=== PATIENT | male | born 1950 | race Caucasian/White ===

== ENCOUNTER 2024-11-13 09:50 | Outpatient (CLI) | payer OTHER, SELFPAY ==
--- OUTSIDE RECORDS SUMMARY | 2024-11-13 11:14 | XMS_ITS | Referral Summary ---
Author Organization [facility] Building Address [address] [place] [id number] Care Team Providers Care [facility]vationist Name Role Phone Jael Fields NP Primary Care Provider [phone] Encounters Date Type Department Care Team Description 09/02/2024 Orders Only [address] [address] Karuna Marion MA Gross hematuria (Primary Dx) 09/02/2024 Orders Only [address] [address] Karuna Marion MA 08/22/2024 6:24 AM MARINE ELECTRONICS TECHNICIAN - 08/22/2024 11:59 PM MARINE ELECTRONICS TECHNICIAN Hospital Encounter [address] [address] Gross hematuria Discharge Disposition: Discharge to home or self care 08/21/[address] [address] Malgorzata Garcia from Last 3 Months Allergies No known active allergies Medications aspirin 81 mg enteric coated tablet Take 1 tablet (81 mg total) by mouth daily Active nitroglycerin (NITROSTAT) 0.[address] 1 tablet (0.4 mg total) under the tongue every 5 (five) minutes as needed for chest pain 90 tablet 2 Active triamcinolone (KENALOG) 0.1 % ointment Apply topically 2 (two) times a day as needed for irritation or rash 30 g 3 Active blood-glucose sensor device 1 each every 14 (fourteen) days To continuous monitor blood glucose. Change every 14 days 2 each 4 Active losartan (COZAAR) 25 mg tablet Take 1 tablet (25 mg total) by mouth daily 90 tablet 1 4 11/26/19 25 Active insulin degludec-liraglut austen (Xultophy 100/3.6) 100 unit-3.6 mg /mL (3 mL) insulin pen pen Inject 20 Units under the skin nightly 15 mL 3 4 Active glipiZIDE XL (GLUCOTROL XL) 5 mg 24 hr tablet Take 1 tablet (5 mg total) by mouth daily 90 tablet 1 4 Active pen needle, diabetic (BD Karolyn 2nd Gen Pen Needle) 32 gauge x /32 needle Use to inject insulin as directed 100 each 1 4 Active empagliflozin (Jardiance) 25 mg tabletIndications :type 2 diabetes mellitus Take 1 tablet (25 mg total) by mouth daily 90 tablet 1 4 Active blood-glucose sensor device Inject 1 each under the skin every 14 (fourteen) days 4 each 2 4 Active metoprolol tartrate (LOPRESSOR) 50 mg immediate release tabletIndications :Essential (primary) hypertension Take 1 tablet (50 mg total) by mouth daily 90 tablet 1 5 Active metFORMIN XR (GLUCOPHAGE XR) 500 mg 24 hr tablet Take 1 tablet (500 mg total) by mouth daily with breakfast 180 tablet 1 5 Active rosuvastatin (CRESTOR) 40 mg tablet TAKE 1 TABLET(40 MG) BY MOUTH DAILY 100 tablet 5 Active Active Problems Problem Noted Date Diagnosed Date S/P drug eluting coronary stent placement 2023 Diabetes mellitus 03/15/2023 Encounter for screening colonoscopy 02/10/2022 Overview (02/10/2022): Added automatically from request for surgery [id number] Pulmonary nodule 11/30/2021 Refractive error 08/16/2021 Age-related nuclear cataract, bilateral 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 08/16/2021 Angina pectoris 06/24/2021 Chronic obstructive bronchitis 06/24/2021 Tobacco dependence syndrome 06/24/2021 Obesity 06/24/2021 Polyp of colon 06/24/2021 Dyslipidemia 06/24/2021 Primary hypertension 06/24/2021 Gastroesophageal reflux disease 06/24/2021 Insomnia 06/24/2021 Palpitations 06/24/2021 Fatigue 06/24/2021 Type 2 diabetes mellitus without complication Abnormal stress test 06/16/2021 Type 2 diabetes mellitus wit h hypoglycemia without coma, with long-term current use of insulin 08/05/2020 Assessment & Plan (07/10/2024 12:41 PM MARINE ELECTRONICS TECHNICIAN): A1c in office today 7.7%, previous 6.7% Hypoglycemic episodes improved since decreasing the Glipizide. Will increase the Jardiance to 25 mg daily. Assessment & Plan (04/09/2024 12:32 PM CDT): A1c has improved to 6.7 from previous 7.3. Getting episodes of hypoglycemia (uses CGM). Will decrease Glipizide to 5 mg daily and Xultophy to 20 units, pt to keep track of sugars as we may need to return the insulin to 25 units. Awaiting remainder of labs, for some reason not drawn with the A1c last month. Assessment & Plan (01/08/2024 12:49 PM CDT): Awaiting A1c, lab drawn today. Has been tolerating Metformin 1000 mg daily. FreeStyle Libre3 has been showing his fasting sugars are running low. Will decrease Xultophy to 28 units daily, home BG in 1 week. May adjust more depending on A1c result. Has been continuing old Whiteyboard, insurance no longer covered. Will try to switch to Jardiance. Samples today to get him started. Assessment & Plan (10/09/2023 2:04 PM MARINE ELECTRONICS TECHNICIAN): A1c worsened from 7.8 to 8.6% Dietary adherence has been a challenge for patient. Adding in Metformin, was on in the past and tolerated well but switched for different medication. CGM discussed and sample of Free Style Sree 3 started today in office. I want weekly fasting BG readings and will adjust his Xultophy as indicated. Recheck A1c in 3 months, if worsened or no improvement will have patient establish with Endo. Assessment & Plan (06/19/2023 1:33 PM CDT): A1c shows nice improvement at 7.8 from previous 8.4. Will continue current regimen and encouraged diet adherence. Cigarette nicotine dependenc e with nicotine-induced disorder 05/25/2020 Other fatigue 05/25/2020 Class 1 obesity with serious comorbidity and body mass index (BMI) of 31.0 to 31.9 in adult 05/25/2020 Essential hypertension 04/02/2019 Coronary artery disease 10/18/2016 Assessment & Plan (04/09/2024 12:33 PM CDT): Stable at this time, continue follow up with Cardiology. Continuing Crestor, awaiting updated numbers. Assessment & Plan (06/19/2023 1:35 PM CDT): Stable at this time, overdue for Cardiology follow up. Referral placed for our building. Dyslipidemia 10/18/2016 Chronic bronchitis with COPD (chronic obstructive pulmonary disease) 10/17/2016 Colon polyps 10/17/2016 Insomnia 10/17/2016 Hypertension associated with type 2 diabetes norma litus 10/17/2016 Assessment & Plan (07/10/2024 12:40 PM MARINE ELECTRONICS TECHNICIAN): BP stable in office today. Continuing current regimen. Assessment & Plan (04/09/2024 12:33 PM CDT): BP stable in office today. Assessment & Plan (01/08/2024 12:50 PM CDT): BP stable in office today. Patient continuing Rosuvastatin 20 mg daily, discussed likely will need to increase to the 40 mg once we get next set of results back as his LDL is not at goal. Assessment & Plan (06/19/2023 1:34 PM CDT): BP stable in office, renal function in good shape. No changes today. GERD (gastroesophageal reflux disease) Overview (06/23/2021): Occasionally R/T diet Resolved Problems Problem Noted Date Diagnosed Date Resolved Date Coronary atherosclerosis 03/15/2023 Abnormal cardiovascular stress test 06/24/2021 10/03/2023 Arteriosclerosis of coronary artery 06/24/2021 10/03/2023 Palpitations 05/25/2020 12/06/2022 Angina pectoris 05/06/2020 12/06/2022 Overview (05/06/2020): chronic,stable,continue current tx plan,routine f/u appt Immunizations Immunization Administration Dates Next Due Influenza, Quadrivalent, Hig h Dose, Preservative Free, Intrr 08/05/2020 Influenza, Unspecified 10/09/2023(Deferr ed: Patient Refused),10/09/2023(Deferred: Patient Refused),09/03/2023(Deferred: Patient Refused),09/03/2023(Deferred: Patient Refused),06/03/2023(Deferred: Patient Refused),09/03/2022(Deferred: Patient Refused),09/03/2022(Deferred: Patient Refused),09/03/2022(Deferred: Patient Refused),06/07/2022(Deferred: Patient Refused),11/30/2021(Deferred: Patient Refused),06/23/2021(Deferred: Patient Refused) Pfizer SARS-CoV-2 Monovalent Vaccination (12+ Yrs) PURPLE 08/02/2021,01/04/2021,12/07/2020 Tdap 10/27/2022 Social History Tobacco Use Types Packs/Day Years Used Date Smoking Tobacco: Every Day Cigarettes 1.3 50 Passive Smoke Exposure: Current Smokeless Tobacco: Never Alcohol Use Standard Drinks/Week Comments Yes 0 (1 standard drink = 0.6 oz pur e alcohol) AUDIT-C Answer Date Recorded Q1: How often do you have a drink containing alc ohol? 2-3 times a week 12/06/2022 Q2: How many drinks containi ng alcohol do you have on a typical day when you are drinking? 1 or 2 12/06/2022 Frequency of Binge Drinking Not on file 01/2023 PHQ-2 Answer Date Recorded PHQ-2 Total Score (If total score is 3 or more points, staff should administer the PHQ-9) 0 07/10/2024 Sex and Gender Information Value Date Recorded Sex Assigned at Not on file Legal Sex Male 6:33 PM MARINE ELECTRONICS TECHNICIAN Gender Identity Not on file Sexual Orientation Not on file Last Filed Vital Signs Vital Sign Reading Time Taken Comments Blood Pressure 120/64 07/10/2024 11:29 AM MARINE ELECTRONICS TECHNICIAN Pulse 73 07/10/2024 11:29 AM MARINE ELECTRONICS TECHNICIAN Temperature 36.4 C (97.5 F) 07/10/2024 11:29 AM MARINE ELECTRONICS TECHNICIAN Respiratory Rate 16 04/02/2024 11:12 AM CDT Oxygen Saturation 99% 07/10/2024 11:29 AM MARINE ELECTRONICS TECHNICIAN Inhaled Oxygen Concentration - - Weight 94.3 kg (208 lb) 07/10/2024 11:29 AM MARINE ELECTRONICS TECHNICIAN Height 180.3 cm (5' 11 ) 07/10/2024 11:29 AM MARINE ELECTRONICS TECHNICIAN Body Mass Index 29.01 07/10/2024 11:29 AM MARINE ELECTRONICS TECHNICIAN Plan of Treatment Not on file Medical Devices Implanted Type Area Group Insurance Special Agent Device Identifier Shelf Expiration Date Model / Serial / Lot Stent-09/03/1999 Implanted:09/03 (Quantity not on file) Stent Coronary Procedures Procedure Name Priority Date/Time Associated Diagnosis Comments CT ABDOMEN PELVIS W WO CONTRAST Schedule Routine, Read Routine (OP Routine) 08/22/2024 10:52 AM MARINE ELECTRONICS TECHNICIAN Gross hematuria POCT HEMOGLOBIN A1C Routine 07/10/2024 11:46 AM MARINE ELECTRONICS TECHNICIAN Type 2 diabetes mellitus with hypoglycemia without coma, with long-term current use of insulin (HCC) EGFR Routine 04/09/2024 12:08 PM CDT Type 2 diabetes mellitus with hyperglycemia, with long-term current use of insulin (HCC) LIPID PANEL Routine 04/09/2024 12:08 PM CDT Type 2 diabetes mellitus with hyperglycemia, with long-term current use of insulin (HCC) ALBUMIN CREATININE RATIO, URINE Routine 10/09/2023 1:41 PM MARINE ELECTRONICS TECHNICIAN Type 2 diabetes mellitus without complication, with long-term current use of insulin (HCC) PSA SCREEN Routine 09/28/2023 12:15 PM MARINE ELECTRONICS TECHNICIAN Benign prostatic hyperplasia with urinary frequency CT LUNG CANCER SCREENING Schedule Routine, Read Routine (OP Routine) 2023 3:24 PM MARINE ELECTRONICS TECHNICIAN Personal history of nicotine dependence DIABETIC EYE EXAM Routine 11/20/2022 COLONOSCOPY 05/05/2022 9:39 AM CDT HEPATITIS C ANTIBODY Routine 06/10/2020 8:49 AM CDT from Last 3 Months or Most Recently Relevant to Health Maintenance Results * CT Abdomen Pelvis W WO Contrast (08/22/2024 10:52 AM MARINE ELECTRONICS TECHNICIAN) Anatomical Region Laterality Modality Body N/A Computed Tomogra phy 08/31/2024 8:37 AM MARINE ELECTRONICS TECHNICIAN Narrative 08/31/2024 8:43 AM MARINE ELECTRONICS TECHNICIAN EXAM DESCRIPTION: CT ABDOMEN PELVIS W WO CONTRAST REASON FOR STUDY: Gross hematuria Hematuria for about 6 - 8 months Heart stent Bladder scoped about a year ago TECHNIQUE: CT scan of the abdomen and pelvis performed without and with intravenous and without oral contrast using helical scanning technique with dynamic intravenous contrast. Reconstructed coronal and sagittal MPR images reviewed. All images stored on PACS. Automated exposure control was used as a dose optimization technique for this examination. CONTRAST TYPE/DOSE: 75mL of IOVERSOL 350 MG IODINE/ML INTRAVENOUS SYRINGE injected via intravenous COMPARISON: 07/14/2021. FINDINGS: LOWER CHEST: The lung bases are clear. There is no pleural effusion. LIVER: The liver size and contour normal. The portal and hepatic veins are patent. GALLBLADDER: No gallstones or overt inflammatory change. BILE DUCTS: No biliary ductal dilation. SPLEEN: Spleen size normal. Granulomatous calcifications are seen. PANCREAS: No pancreatic mass or inflammatory change. ADRENALS: Normal KIDNEYS/URINARY TRACT: No right renal calculus. No left renal calculus. No ureteral calculus. There is no hydronephrosis or hydroureter. There is indistinctness of the urinary bladder wall. No solid renal mass. There is normal excretion of contrast from the kidneys bilaterally. The ureters are not adequately opacified for assessment. There is contrast seen in the calices in the renal pelves, but the ureters are predominantly non opacified for assessment. There is opacification of the distal half of the right ureter with no obvious abnormality where opacified. The left ureter is not opacified. The prostate impresses upon the urinary bladder base. GI: No evidence of bowel obstruction. Moderate descending and sigmoid colon diverticulosis. No evidence of acute diverticulitis. The terminal ileum and appendix are normal. The stomach and duodenal are normal. No pneumatosis. No abnormal bowel wall thickening. PERITONEUM: No ascites or free air. No mesenteric mass or lymphadenopathy. RETROPERITONEUM: No retroperitoneal mass or lymphadenopathy. REPRODUCTIVE: The prostate is enlarged and impresses upon the urinary bladder base. The prostate is heterogeneous, correlation with PSA level recommended. VASCULATURE: Abdominal aorta nonaneurysmal. Venous structures unremarkable. MUSCULOSKELETAL: Bone windows demonstrate no acute or aggressive osseous abnormality. There is the small sclerotic focus T12 and L4, these are nonspecific but may be bone islands, appear unchanged. OTHER: No other abnormality. IMPRESSION: Distal half of the right ureter is normally opacified with no abnormality, the ureters are otherwise are non opacified. No obvious mass. Indistinctness of the urinary bladder wall, this is nonspecific but may be due to cystitis or related to chronic outlet obstruction from the enlarged prostate. Correlation with urinalysis recommended. Otherwise normal CT urogram. No evidence of urolithiasis or obstructive uropathy. No renal or renal pelvis mass. No evidence of an acute abnormality of the abdomen and pelvis. Enlarged heterogeneous prostate impressing upon the urinary bladder base. Correlation with PSA level recommended. Colonic diverticulosis with no evidence of acute diverticulitis. THIS IS AN ELECTRONICALLY VERIFIED FINAL REPORT 08/31/2024 8:43 AM - Electronically signed by Sanjiv Beach M.D. CH: LALITHA Report ID: [id number] Reading Location: [id number] Procedure Note Sanjiv Beach Jr., MD - 08/31/2024 EXAM DESCRIPTION: CT ABDOMEN PELVIS W WO CONTRAST REASON FOR STUDY: Gross hematuria Hematuria for about 6 - 8 months Heart stent Bladder scoped about a yearago TECHNIQUE: CT scan of the abdomen and pelvis performed without and with intravenous and without oral contrast using helical scanning techniquewith dynamic intravenous contrast. Reconstructed coronal and sagittal MPRimages reviewed. All images stored on PACS. Automated exposure control was usedas a dose optimization technique for this examination. CONTRAST TYPE/DOSE: 75mL of IOVERSOL 350 MG IODINE/ML INTRAVENOUSSYRINGE injected via intravenous COMPARISON: 07/14/2021. FINDINGS: LOWER CHEST: The lung bases are clear. There is no pleural effusion. LIVER: The liver size and contour normal. The portal and hepatic veinsare patent. GALLBLADDER: No gallstones or overt inflammatory change. BILE DUCTS: No biliary ductal dilation. SPLEEN: Spleen size normal. Granulomatous calcifications are seen. PANCREAS: No pancreatic mass or inflammatory change. ADRENALS: Normal KIDNEYS/URINARY TRACT: No right renal calculus. No left renal calculus.No ureteral calculus. There is no hydronephrosis or hydroureter. There is indistinctness of the urinary bladder wall. No solid renal mass. There is normal excretion of contrast from the kidneys bilaterally. The uretersare not adequately opacified for assessment. There is contrast seen in the calices in the renal pelves, but the ureters are predominantly nonopacified for assessment. There is opacification of the distal half of the rightureter with no obvious abnormality where opacified. The left ureter is notopacified. The prostate impresses upon the urinary bladder base. GI: No evidence of bowel obstruction. Moderate descending and sigmoidcolon diverticulosis. No evidence of acute diverticulitis. The terminal ileumand appendix are normal. The stomach and duodenal are normal. Nopneumatosis. No abnormal bowel wall thickening. PERITONEUM: No ascites or free air. No mesenteric mass orlymphadenopathy. RETROPERITONEUM: No retroperitoneal mass or lymphadenopathy. REPRODUCTIVE: The prostate is enlarged and impresses upon the urinary bladder base. The prostate is heterogeneous, correlation with PSA level recommended. VASCULATURE: Abdominal aorta nonaneurysmal. Venous structuresunremarkable. MUSCULOSKELETAL: Bone windows demonstrate no acute or aggressive osseous abnormality. There is the small sclerotic focus T12 and L4, these are nonspecific but may be bone islands, appear unchanged. OTHER: No other abnormality. IMPRESSION: Distal half of the right ureter is normally opacified with noabnormality, the ureters are otherwise are non opacified. No obvious mass. Indistinctness of the urinary bladder wall, this is nonspecific but maybe due to cystitis or related to chronic outlet obstruction from the enlarged prostate. Correlation with urinalysis recommended. Otherwise normal CT urogram. No evidence of urolithiasis or obstructive uropathy. No renal or renal pelvis mass. No evidence of an acute abnormality of the abdomen and pelvis. Enlarged heterogeneous prostate impressing upon the urinary bladder base. Correlation with PSA level recommended. Colonic diverticulosis with no evidence of acute diverticulitis. THIS IS AN ELECTRONICALLY VERIFIED FINAL REPORT 08/31/2024 8:43 AM - Electronically signed by Sanjiv Beach M.D. CH: LALITHA Report ID: [id number] Reading Location: [id number] us Daja Carroll NP IMG CT PROCEDURES Final Result * POCT hemoglobin A1c (07/10/2024 11:46 AM MARINE ELECTRONICS TECHNICIAN) Hemoglobin A1C, POC 7.7 4.0 - 5.6 % Blood 07/10/2024 11:4 6 AM MARINE ELECTRONICS TECHNICIAN us Daja Carroll NP POINT OF CARE TEST ORDERABLES Fi nal Result * eGFR (04/09/2024 12:08 PM CDT) eGFR >90 >=60 mL/min/1. 73 m2 Comment: Interpretive Data Reference Interval Normal >/= 90 mL/min/1.73m2 Mildly decreased* 60 - 89 mL/min/1.73m2 Mildly to moderately decreased 45 - 59 mL/min/1.73m2 Moderately to severely decreased 30 - 44 mL/min/1.73m2 Severely decreased 15 - 29 mL/min/1.73m2 Kidney Failure < 15 mL/min/1.73m2 *Relative to young adult level Estimated glomerular filtration rate is determined by the 2020 CKD-EPI equation recommended by the National Kidney Foundation (A Unifying Approach to GFR Estimation: Recommendations of the NKF-ASK Task Force on Reassessing the Inclusion of Race in Diagnosing Kidney Disease, JASN 2020). The CKD-EPI equation should not be used for patients with unstable renal function and has not been validated in children and those over 70. Current interpretive data was last reviewed 2021. Blood 04/09/2024 12:0 8 PM CDT 04/09/2024 7:35 PM CDT us Daja Carroll NP LAB BLOOD ORDERABLES Final Resul t [facility] [id number] [address] Department [place] [address] * Lipid panel (04/09/2024 12:08 PM CDT) Cholesterol 196 30 - 199 mg/dL Comment: Interpretive Data Ages < or = 19 years Acceptable: <170 mg/dL Borderline high: 170-199 mg/dL High: >or= 200 mg/dL Ages > or = 20 years Desirable: <200 mg/dL Borderline high: 200-239 mg/dL High: >or= 240 mg/dL Literature References: 1. Expert Panel on Integrated Guidelines for Cardiovascular Health and Risk Reduction in Children and Adolescents. Pediatrics 2011;128:S213 2. NCEP Expert Panel. Circulation 2004;110:227 Current Interpretive Data was last revised on 2018. Triglycerides 69 <=149 mg/dL [facility] Comment: Interpretive Data Ages < or = 9 years Acceptable: <75 mg/dL Borderline high: 75-99 mg/dL High: >or= 100 mg/dL Ages 10 to 20 years Acceptable: <90 mg/dL Borderline high: 90-129 mg/dL High: >or= 130 mg/dL Ages > or = 20 years Desirable: <150 mg/dL Borderline high: 150-199 mg/dL High: 200-499 mg/dL Very high: >or= 499 mg/dL Literature References: 1. Expert Panel on Integrated Guidelines for Cardiovascular Health and Risk Reduction in Children and Adolescents. Pediatrics 2011;128:S213 2. NCEP Expert Panel. Circulation 2004;110:227 Current Interpretive Data was last revised on 2018. HDL 70 >=40 mg/dL [facility] Comment: Interpretive Data Ages < or = 19 years Acceptable: >45 mg/dL Borderline low: 40-45 mg/dL Low: <40 mg/dL Ages > or = 20 years Desirable: >or= 60 mg/dL Low: <40 mg/dL Literature References: 1. Expert Panel on Integrated Guidelines for Cardiovascular Health and Risk Reduction in Children and Adolescents. Pediatrics 2011;128:S213 2. NCEP Expert Panel. Circulation 2004;110:227 Current Interpretive Data was last revised on 2018. LDL, calculated 112 <=129 mg/dL [facility] Comment: Interpretive Data Ages < or = 19 years Acceptable: <110 mg/dL Borderline high: 110-129 mg/dL High: >or= 130 mg/dL Ages > or = 20 years Optimal: <100 mg/dL Near optimal: 100-129 mg/dL Borderline high: 130-159 mg/dL High: >160 mg/dL Literature References: 1. Expert Panel on Integrated Guidelines for Cardiovascular Health and Risk Reduction in Children and Adolescents. Pediatrics 2011;128:S213 2. NCEP Expert Panel. Circulation 2004;110:227 Current Interpretive Data was last revised on 2018. Non-HDL Cholesterol 126 mg/dL [facility] Comment: Interpretive Data Ages < or = 19 years Acceptable: <120 mg/dL Borderline high: 120-144 mg/dL High: >145 mg/dL Ages > or = 20 years When triglycerides are >200 mg/dL, Non-HDL cholesterol is a secondary target of therapy with treatment goals that are 30 mg/dL greater than the LDL cholesterol target. Literature References: 1. Expert Panel on Integrated Guidelines for Cardiovascular Health and Risk Reduction in Children and Adolescents. Pediatrics 2011;128:S213 2. NCEP Expert Panel. Circulation 2004;110:227 Current Interpretive Data was last revised on 2018. Chol/HDL ratio 3 [facility] Blood 04/09/2024 12:0 8 PM CDT 04/09/2024 7:33 PM CDT us Daja Carroll NP LAB BLOOD ORDERABLES Final Resul t [facility] [id number] [address] Department [place] [address] * Albumin Creatinine Ratio, Urine (10/09/2023 1:41 PM MARINE ELECTRONICS TECHNICIAN) Albumin Ur <12.0 mg/L [facility] Comment: Interpretive Data No reference range established. Current interpretive data was last revised 2019. Creatinine Ur 41.3 mg/dL [facility] Comment: Interpretive Data No reference range established. Current interpretive data was last revised 2019. Albumin Creatinine Ratio, Ur <29 1 - 29 mg/g [facility] Urine 10/09/2023 1:41 PM MARINE ELECTRONICS TECHNICIAN 10/09/2023 8:30 PM MARINE ELECTRONICS TECHNICIAN Daja Carroll NP LAB URINE ORDERABLES Final Resul t Performing Organization Address [facility] de Phone Number [facility] [address] [address] Department [place] [address] * PSA screen (09/28/2023 12:15 PM MARINE ELECTRONICS TECHNICIAN) PSA-Total 1.02 <=6.20 ng/mL [facility] Comment: Interpretive Data AGE SEX REFERENCE INTERVAL 0 minutes-150 years Female None 0 minutes-49 years Male None 50-59 years Male 0-3.90 60-69 years Male 0-5.40 70-79 years Male 0-6.20 80-150 years Male 0-6.20 The Radha PSA Total assay procedure was used. Results from different manufacturers or methods may not be comparable. Serial testing should be performed using the same method. Current interpretive data last revised 22. Blood 09/28/2023 12:1 5 PM MARINE ELECTRONICS TECHNICIAN 09/28/2023 8:09 PM MARINE ELECTRONICS TECHNICIAN us Daja Carroll NP LAB BLOOD ORDERABLES Final Resul t Performing Organization Address [facility] de Phone Number [facility] [id number] [address] [place] [address] * CT Lung Cancer Screening (2023 3:24 PM MARINE ELECTRONICS TECHNICIAN) Anatomical Region Laterality Modality Chest N/A Computed Tomogra phy 07/31/2023 7:30 AM MARINE ELECTRONICS TECHNICIAN Narrative 07/31/2023 7:38 AM MARINE ELECTRONICS TECHNICIAN EXAM DESCRIPTION: CT LUNG CANCER SCREENING REASON FOR STUDY: Screening CT of the chest in a current smoker with a 52 pack year smoking history. Additional history: None. TECHNIQUE: Low dose CT scan of the chest was performed without intravenous contrast using helical scanning technique. The exam extends from the lung apices through the lung bases. Automatic exposure control was used as a dose optimization technique. NOTE: This study was performed for the specific purposes of lung cancer screening and is not an alternative to diagnostic chest CT. RADIATION DOSE: CT dose index volume (CTDIvol) = 2.39 mGy COMPARISON: 12/30/2021 FINDINGS: SMOKING RELATED LUNG DISEASE: There are mild emphysematous changes of lungs with scattered mild subsegmental atelectasis and scarring. There is no definite evidence of a pneumothorax. The central airways are grossly patent. There is scattered mild bronchial wall thickening, which is likely related to mild chronic bronchitis/bronchiolitis. There is no definite evidence of focal consolidation or pleural effusion. There are scattered calcified granulomas noted. LUNG NODULES: There are scattered pulmonary nodules noted, similar to the prior study. For example, there is a stable subpleural 0.3 cm right lower lobe pulmonary nodule (axial image 197). There is a stable 0.3 cm right lower lobe pulmonary nodule adjacent to a bronchiole (axial image 193). There is a stable 0.3 cm left upper lobe pulmonary nodule abutting the left major fissure (axial image 69). There is a stable elongated left lower lobe pulmonary nodule measuring 0.7 cm abutting the left hemidiaphragm (axial image 208). CORONARY ARTERY CALCIFICATION: Present. OTHER: The heart size is stable. There is no definite evidence of a pericardial effusion. There is redemonstration of subendocardial fatty infiltration involving the left ventricle, which is likely sequela of prior ischemia. There are atherosclerotic changes of the thoracic aorta and coronary vessels. There is no definite unenhanced CT evidence of mediastinal, hilar, or axillary lymphadenopathy. There are scattered subcentimeter mediastinal lymph nodes noted with the largest measuring 0.6 cm in the precarinal region (axial image 126). Calcified right hilar lymph nodes are noted. There is a small hiatal hernia. The bilateral adrenal glands are grossly stable and unremarkable. There are scattered colonic diverticula noted. There is mild osteopenia with degenerative changes of the spine. IMPRESSION: Redemonstration of scattered small pulmonary nodules measuring up to 0.7 cm, grossly similar to the prior study. No definite evidence of a new suspicious pulmonary nodule. Mild emphysematous changes of lungs with scattered mild subsegmental atelectasis and scarring. Scattered mild bronchial wall thickening, which is likely related to mild chronic bronchitis/bronchiolitis. Evidence of prior granulomatous disease. Lung-RADS category 2: Benign appearance or behavior. Recommendation: Low dose Screening CT of chest in 12 months. THIS IS AN ELECTRONICALLY VERIFIED FINAL REPORT 07/31/2023 7:38 AM - Electronically signed by Lokesh Hassan D.O. PS T: Report ID: [id number] Reading Location: [id number] Procedure Note Lokesh Hassan, DO - 07/31/2023 EXAM DESCRIPTION: CT LUNG CANCER SCREENING REASON FOR STUDY: Screening CT of the chest in a current smoker with a52 pack year smoking history. Additional history: None. TECHNIQUE: Low dose CT scan of the chest was performed without intravenous contrast using helical scanning technique. The exam extends from the lung apices through the lung bases. Automatic exposure control was used as adose optimization technique. NOTE: This study was performed for the specific purposes of lung cancer screening and is not an alternative to diagnostic chest CT. RADIATION DOSE: CT dose index volume (CTDIvol) = 2.39 mGy COMPARISON: 12/30/2021 FINDINGS: SMOKING RELATED LUNG DISEASE: There are mild emphysematouschanges of lungs with scattered mild subsegmental atelectasis and scarring. Thereis no definite evidence of a pneumothorax. The central airways are grossly patent. There is scattered mild bronchial wall thickening, which islikely related to mild chronic bronchitis/bronchiolitis. There is no definite evidence of focal consolidation or pleural effusion. There are scattered calcified granulomas noted. LUNG NODULES: There are scattered pulmonary nodules noted, similar tothe prior study. For example, there is a stable subpleural 0.3 cm right lower lobe pulmonary nodule (axial image 197). There is a stable 0.3 cm rightlower lobe pulmonary nodule adjacent to a bronchiole (axial image 193). Thereis a stable 0.3 cm left upper lobe pulmonary nodule abutting the left majorfissure (axial image 69). There is a stable elongated left lower lobe pulmonary nodule measuring 0.7 cm abutting the left hemidiaphragm (axial image 208). CORONARY ARTERY CALCIFICATION: Present. OTHER: The heart size is stable. There is no definite evidence of a pericardial effusion. There is redemonstration of subendocardial fatty infiltration involving the left ventricle, which is likely sequela ofprior ischemia. There are atherosclerotic changes of the thoracic aorta and coronary vessels. There is no definite unenhanced CT evidence of mediastinal, hilar, oraxillary lymphadenopathy. There are scattered subcentimeter mediastinal lymphnodes noted with the largest measuring 0.6 cm in the precarinal region (axialimage 126). Calcified right hilar lymph nodes are noted. There is a small hiatal hernia. The bilateral adrenal glands are grossly stable and unremarkable. There are scattered colonic diverticula noted. There is mild osteopenia with degenerative changes of the spine. IMPRESSION: Redemonstration of scattered small pulmonary nodules measuring up to 0.7cm, grossly similar to the prior study. No definite evidence of a newsuspicious pulmonary nodule. Mild emphysematous changes of lungs with scattered mild subsegmental atelectasis and scarring. Scattered mild bronchial wall thickening, which is likely related to mild chronic bronchitis/bronchiolitis. Evidence of prior granulomatous disease. Lung-RADS category 2: Benign appearance or behavior. Recommendation: Low dose Screening CT of chest in 12 months. THIS IS AN ELECTRONICALLY VERIFIED FINAL REPORT 07/31/2023 7:38 AM - Electronically signed by Lokesh Hassan D.O. PS T: Report ID: [id number] Reading Location: [place] [address] [address] MACHINE GR[employer]ER IMG CT PROCEDURES Final Result * Diabetic Eye Exam (11/20/2022) Historical Provider HEALTH MAINTENANCE Final Result * COLONOSCOPY (05/05/2022 9:39 AM CDT) Anatomical Region Laterality Modality Other Narrative Procedure Note Ruel Rodgers MD - 05/05/2022 9:39 AM CDT [facility] Patient Name: Richard Argueta Procedure Date: 05/05/2022 9:39 AM Date of : 1950 Admit Type: Outpatient Age: 71 Gender: Male Attending MD: Ruel Rodgers M.D. Room: [facility] ENDOSCOPY ROOM 2 Note Status: Finalized Patient Profile: Refer to note in patient chart for documentation of history and physical. Procedure: Colonoscopy Indications: High risk colon cancer surveillance: Personalhistory of colonic polyps, Last colonoscopy: 2016 Referring MD: Ruel Root M.D. Providers: Ruel Rodgers M.D. Impression: - Hemorrhoids found on perianal exam. - Two 5 to 6 mm polyps in the sigmoid colon,removed with a hot biopsy forceps. Resected andretrieved. - Diverticulosis in the sigmoid colon and in the descending colon. - The examination was otherwise normal. Recommendation: - Discharge patient to home. - Resume previous diet. - Continue present medications. - Await pathology results. - Repeat colonoscopy in 5 years for surveillance. - Return to primary care physician as previously scheduled. Medicines: Propofol per Anesthesia Complications: No immediate complications. Estimated Blood Loss: Estimated blood loss: none. Procedure: Pre-Anesthesia Assessment: - This assessment was completed [Time ofAssessment] prior to the administration of sedation. The benefits, risks and alternatives of theprocedure and sedation were discussed and informed consentwas obtained. All questions were answered. Please referto the signed informed consent document in the medical record. The scope was passed under direct vision.The Colonoscope [id number] was introducedthrough the anus and advanced to the the cecum, identifiedby appendiceal orifice and ileocecal valve. The bowel preparation used was Miralax and bisacodyl tabletsvia single dose instruction. The colonoscopy wasperformed without difficulty. The patient tolerated the procedure well. The quality of the bowelpreparation was good. The ileocecal valve, appendiceal orifice, and rectum were photographed. Findings: Hemorrhoids were found on perianal exam. Two sessile polyps were found in the sigmoid colon. The polyps were 5to 6 mm in size. These polyps were removed with a hot biopsy forceps. Resection and retrieval were complete. Verification of patient identification for the specimen was done by the physician and nurse using the patient's name and date. Estimated blood loss was minimal. Multiple small and large-mouthed diverticula were found in thesigmoid colon and descending colon. The exam was otherwise without abnormality. Electronically signed by Ruel Rodgers M.D. Ruel Rodgers M.D. 05/05/2022 10:20:37 AM Number of Addenda: 0 Note Initiated On: 05/05/2022 9:39 AM Procedure Code(s): --- Professional --- 04134, Colonoscopy, flexible; with removal of tumor(s), polyp(s), or other lesion(s) by hot biopsy forceps Diagnosis Code(s): --- Professional --- K57.30, Diverticulosis of large intestine without perforation orabscess without bleeding D12.5, Benign neoplasm of sigmoid colon K64.9, Unspecified hemorrhoids Z86.010, Personal history of colonic polyps CPT copyright 2020 [employer]. All rights reserved. The codes documented in this report are preliminary and upon remote coders reviewmay be revised to meet current compliance requirements. Recognized by the [employer] for promoting quality in endoscopy us Ruel Rodgers MD ENDOSCOPY PROCEDURES Final Re sult * Hepatitis C antibody (06/10/2020 8:49 AM CDT) Hep C Ab NON-REACTI VE NON-REACT SHAQ [facility] SIGNAL TO CUT-OFF 0.01 <1.00 [facility] Comment: HCV antibody was non-reactive. There is no laboratory evidence of HCV infection. In most cases, no further action is required. However, if recent HCV exposure is suspected, a test for HCV RNA (test code 68343) is suggested. For additional information please refer to http://education.5app/faq/ZHP85a8 (This link is being provided for informational/ educational purposes only.) 06/10/2020 8:49 AM CDT 06/10/2020 8:59 AM CDT Narrative [facility] - 06/11/2020 10:43 AM CDT FASTING:YES PATIENT REFUSED SOME TESTING; PATIENT ENCOURAGED TO RETURN. FASTING: YES Niranjan Potter DO LAB MICROBIOLOGY - GENER AL ORDERABLES Final Result [facility] [address] [place] [address] from Last 3 Months or Most Recently Relevant to Health Maintenance Insurance [facility] MEDICARE ADV [employer] MEDICARE ADV Advance Directives For more information, please contact: [phone] * Full Code (Latest Code Status on File) Date Activated Date Inactivated Comments 05/05/2022 9:32 AM 05/05/2022 3:25 PM * Full Code Date Activated Date Inactivated Comments 05/05/2022 9:32 AM 05/05/2022 9:32 AM Care Teams Salvationist Relationship Specialty Start Date End Date Jael Fields NP [facility] [facility] [address] [place] [address] [place] [id number] PCP - General Internal Medicine 10/28/24
--- OUTSIDE RECORDS SUMMARY | 2024-11-13 11:14 | XMS_ITS | Patient Health Summary ---
Author Organization [facility] Address [address] [place] [address] Care Team Providers Care Chief Deputy Name Role Phone Unavailable Primary Care Provider Unavailabl e Note from [facility],non-owned Affiliates and Associated Physician Practices is amultiple site organization consisting of ambulatory clinics and hospital sitesin [place], [place], [place] and [place]. This disclosure is being madepursuant to the Care Everywhere program and may not contain all information available regarding this patient. Last updated 18.[facility] Social History Tobacco Use Types Packs/Day Years Used Date Smoking Tobacco: Never Assessed Sex and Gender Information Value Date Recorded Sex Assigned at Not on file Gender Identity Not on file Sexual Orientation Not on file Procedures * DERMATOPATHOLOGY(Performed 11/30/2022) Results * DERMATOPATHOLOGY (11/30/2022 3:33 AM CDT) Case Report Dermatopathology Report Case: [id number] Authorizing Provider: Matt Cazares MD Collected: 11/30/2022 03:33 AM Ordering Location: [facility] DermPath Lab Received: 12/04/2022 06:51 AM Pathologist: Lindsey Xiong MD Specimen: Skin, left upper chest 3 4:58 PM CDT DERMATOPATHOLOGY LABORATORY Final Diagnosis Specimen A. SKIN, left upper chest: BENIGN VERRUCOUS KERATOSIS (L82.1) 3 4:58 PM CDT DERMATOPATHOLOGY LABORATORY Clinical History SK R/O Atypia Path# [id number] 3 4:58 PM CDT DERMATOPATHOLOGY LABORATORY Gross Description Specimen A: Received is one formalin filled container labeled with the patient's name and designated left upper chest. The specimen consists of a shave biopsy measuring [id number] mm. Jar 0+. 3 4:58 PM CDT DERMATOPATHOLOGY LABORATORY Microscopic Description Specimen A. SKIN, left upper chest: Sections show hyperkeratosis, papillomatosis, hypergranulosis, and acanthosis. These histological findings can be seen in a verruca vulgaris or a seborrheic keratosis. 3 4:58 PM CDT DERMATOPATHOLOGY LABORATORY Disclaimer An external and internal positive and negative controls are appropriate for the histochemical, immunohistochemical and immunofluorescence stain(s) in this case (if any), except where stated explicitly. The performance characteristics of the stain(s) cited in this report were developed and its performance characteristic determined by the Dermatopathology Laboratory at [facility], directed by Dr. Belén Villanueva. These tests need not be, and therefore are not, approved by the [place] Food and Drug Administration. The tests are used for clinical purposes. Billing Codes Specimen Charges Stain Charges 55707 1 3 4:58 PM CDT DERMATOPATHOLOGY LABORATORY Embedded Images 3 4:58 PM CDT DERMATOPATHOLOGY LABORATORY Pathology/Cytolo gy TISSUE SPECIMEN FROM SKIN / Unknown 11/30/2022 3:33 AM CDT 12/04/2022 6:51 AM CDT Matt Cazares MD LAB - PATHOLOGY/CYTO LOGY ORDERABLES DERMATOPATHOLOGY LABORATORY [facility] - Department of Dermatology [address], [address] [phone]
--- OUTSIDE RECORDS SUMMARY | 2024-11-13 11:14 | XMS_ITS | Encounter Summary ---
Author Organization [facility] Address [address] [place] [address] Care Team Providers Care Spanish Speaking Babysitter Name Role Phone Unavailable Primary Care Provider Unavailabl e Encounter Details Date Type Department Care Team (Late st Contact Info) Description 12/04/2022 Lab Requisition [facility] DermPath Lab [address] [place] [phone] Matt Cazares MD [address] [place] [address] [place] [address] Social History Tobacco Use Types Packs/Day Years Used Date Smoking Tobacco: Never Assessed Sex and Gender Information Value Date Recorded Sex Assigned at Not on file Gender Identity Not on file Sexual Orientation Not on file documented as of this encounter Plan of Treatment Not on file documented as of this encounter Procedures Procedure Name Priority Date/Time Associated Diagnosis Comments DERMATOPATHOLOGY Routine 11/30/2022 3:33 AM CDT documented in this encounter Results * DERMATOPATHOLOGY (11/30/2022 3:33 AM CDT) Case Report Dermatopathology Report Case: [id number] Authorizing Provider: Matt Cazares MD Collected: 11/30/2022 03:33 AM Ordering Location: [facility] DermPath Lab Received: 12/04/2022 06:51 AM Pathologist: Lindsey Xiong MD Specimen: Skin, left upper chest 3 4:58 PM CDT DERMATOPATHOLOGY LABORATORY Final Diagnosis Specimen A. SKIN, left upper chest: BENIGN VERRUCOUS KERATOSIS (L82.1) 3 4:58 PM CDT DERMATOPATHOLOGY LABORATORY Clinical History SK R/O Atypia Path# [id number] 3 4:58 PM CDT DERMATOPATHOLOGY LABORATORY Gross Description Specimen A: Received is one formalin filled container labeled with the patient's name and designated left upper chest. The specimen consists of a shave biopsy measuring [id number] mm. Jar 0+. 3 4:58 PM [facility] DERMATOPATHOLOGY LABORATORY Microscopic Description Specimen A. SKIN, left upper chest: Sections show hyperkeratosis, papillomatosis, hypergranulosis, and acanthosis. These histological findings can be seen in a verruca vulgaris or a seborrheic keratosis. 3 4:58 PM T DERMATOPATHOLOGY LABORATORY Disclaimer An external and internal positive and negative controls are appropriate for the histochemical, immunohistochemical and immunofluorescence stain(s) in this case (if any), except where stated explicitly. The performance characteristics of the stain(s) cited in this report were developed and its performance characteristic determined by the Dermatopathology Laboratory at [facility], directed by Dr. Belén Villanueva. These tests need not be, and therefore are not, approved by the [place] Food and Drug Administration. The tests are used for clinical purposes. Billing Codes Specimen Charges Stain Charges 50984 1 3 4:58 PM CDT DERMATOPATHOLOGY LABORATORY Embedded Images 3 4:58 PM T DERMATOPATHOLOGY LABORATORY Pathology/Cytolo gy TISSUE SPECIMEN FROM SKIN / Unknown 11/30/2022 3:33 AM CDT 12/04/2022 6:51 AM CDT Matt Cazares MD LAB - PATHOLOGY/CYTO LOGY ORDERABLES DERMATOPATHOLOGY LABORATORY [facility] - Department of Dermatology [address], [address] [phone] documented in this encounter Visit Diagnoses Not on filedocumented in this encounter
--- OUTSIDE RECORDS SUMMARY | 2024-11-13 11:14 | XMS_ITS | Clinical Summary ---
Author Organization [facility] Address [address] [place] [id number] Care Team Providers Care Knuckle Strap Sewer Name Role Phone Jael Fields NP Primary Care Provider [phone] Allergies No known active allergies Medications aspirin [...] 2nd Gen Pen Needle) 32 gauge x 5/32 needle Use to inject insulin as directed [...] (02/10/2022): Added automatically from request for surgery [id number] Pulmonary nodule 11/30/2021 Refractive error 08/16/2021 Age-related nuclear cataract, bilateral 08/16/20 intermediate frame tender (current) use of oral hypoglycemic laurel gs [...] 08/05/2020 Assessment & Plan (07/10/2024 12:41 PM SLOT FLOORPERSON): A1c in office today 7.7%, previous 6.7% [...] on A1c result. Has been continuing old Farxiga, insurance no longer covered. Will try to switch to Jardiance. Samples today to get him started. Assessment & Plan (10/09/2023 2:04 PM SLOT FLOORPERSON): A1c worsened from 7.8 to 8.6% Dietary [...] 10/17/2016 Assessment & Plan (07/10/2024 12:40 PM SLOT FLOORPERSON): BP stable in office today. Continuing current [...] (05/06/2020): chronic,stable,continue current tx plan,routine f/u appt Encounters Date Type Department Care Team Description 09/02/2024 Orders Only [facility] [address] [address] Karuna Marion MA Gross hematuria (Primary Dx) 09/02/2024 Orders Only [address] [place] [address] Karuna Marion MA 08/22/2024 6:24 AM SLOT FLOORPERSON - 08/22/2024 11:59 PM SLOT FLOORPERSON Hospital Encounter [address] [address] Gross hematuria Discharge Disposition: Discharge to home or self care 08/21/[address] [address] Malgorzata Garcia from Last 3 Months Immunizations Immunization Administration Dates Next Due Influenza, Quadrivalent, Hig h Dose, Preservative Free, Intrr 08/05/2020 Influenza, Unspecified 10/09/2023(Deferr ed: Patient Refused),10/09/2023(Deferred: Patient Refused),09/03/2023(Deferred: Patient Refused),09/03/2023(Deferred: Patient Refused),06/03/2023(Deferred: Patient Refused),09/03/2022(Deferred: Patient Refused),09/03/2022(Deferred: Patient Refused),09/03/2022(Deferred: Patient Refused),06/07/2022(Deferred: Patient Refused),11/30/2021(Deferred: Patient Refused),06/23/2021(Deferred: Patient Refused) Pfizer SARS-CoV-2 Monovalent Vaccination (12+ Yrs) PURPLE 08/02/2021,01/04/2021,12/07/2020 Tdap 10/27/2022 Surgical History Surgery Date Site/Laterality Comments CORONARY ANGIOPLASTY 09/03/1999 - 09/02/2000 PCI to LCX CARDIAC STENT PLACEMENT 09/03/1999 - 09/02/2000 CARDIAC CATHETERIZATION 09/03/2012 - 09/02/2013 COLONOSCOPY 09/03/2016 - 09/02/2017 Medical History Medical History Date Comments Hypertension Diabetes mellitus type I (HCC) GERD (gastroesophageal reflux disease) Occasionally R/T diet History of blood in urine 06/2021 Pt sta césar has been urinating blood w/ clots. Stated it stopped on 06/19/2021. Is awaiting a referral to urologist from PCP. Abnormal cardiovascular stress test 05/2021 Peripheral neuropathy Bottom of feet Colon polyp Type 2 diabetes mellitus (HCC) Hyperlipidemia Skin cancer Family History Medical History Relation Name Comments Car Accident Father Heart disease Father Diabetes Mother Heart disease Mother Kidney failure Mother Relation Name Status Comments Father (Age 81) Mother (Age 78) Social History Tobacco Use Types Packs/Day Years [...] on file Legal Sex Male 6:33 PM SLOT FLOORPERSON Gender Identity Not on file Sexual Orientation Not on file Obstetrics History Last Filed Vital Signs Vital Sign Reading Time Taken Comments Blood Pressure 120/64 07/10/2024 11:29 AM SLOT FLOORPERSON Pulse 73 07/10/2024 11:29 AM SLOT FLOORPERSON Temperature 36.4 C (97.5 F) 07/10/2024 11:29 AM SLOT FLOORPERSON Respiratory Rate 16 04/02/2024 11:12 AM CDT Oxygen Saturation 99% 07/10/2024 11:29 AM SLOT FLOORPERSON Inhaled Oxygen Concentration - - Weight 94.3 kg (208 lb) 07/10/2024 11:29 AM SLOT FLOORPERSON Height 180.3 cm (5' 11 ) 07/10/2024 11:29 AM SLOT FLOORPERSON Body Mass Index 29.01 07/10/2024 11:29 AM SLOT FLOORPERSON Plan of Treatment Health Maintenance Due Date Last Done Comments Hepatitis B Screening 1969 Pneumococcal vaccine 65+ (1 of 2 - PCV) 1970 Zoster Vaccine (1 of 2) 2001 Dilated Eye Exam 11/21/2023 11/20/2022, , 08/16/2021 Well Visit 65+ 12/07/2023 12/06/2022, 05/06/2020 Covid-19 Vaccine (2023-2 5 season) 2024 06/19/2022, 08/02/2021, 01/04/2021, Additional history exists Influenza Vaccine (#1) 2024 08/05/2020 Lung Cancer Screening 2024 2023 Albumin Creatinine Ratio, Urine 10/09/2024 10/09/2023, 09/13/2022, 11/30/2021, Additional history exists Hemoglobin A1C 01/07/2025 07/10/2024, 03/03, 01/08/2024, Additional history exists Foot Exam 04/09/2025 04/09/2024, 12/06/2022 Lipid Panel 04/09/2025 04/09/2024, 09/04, 06/19/2023, Additional history exists eGFR 04/09/2025 04/09/2024, 09/04, 06/19/2023, Additional history exists Depression Screening 07/10/2025 07/10/2024, 04/09/2024, 01/08/2024, Additional history exists Fall Risk Assessment 07/10/2025 07/10/2024, 01/08/2024, 06/19/2023, Additional history exists Colon Cancer Screening-Colonoscopy 05/05/2032 05/05/2022 DTaP/Tdap/Td Vaccine (2 - Td or Tdap) 10/27/2032 10/27/2022 Hepatitis C Screening Completed 06/10/2020 Colon Cancer Screening-CT Colonography Discontinued 05/05/2022 Colon Cancer Screening-DNA Stool Discontinued 05/05/20 Colon Cancer Screening-FIT Discontinued 05/05/2022 Colon Cancer Screening-Sigmoidoscopy Discontinued 05/05/2022 Prostate Cancer Screening-PSA Discontinued , 06/19/2023, 09/13/2022, Additional history exists Abdominal Aortic Aneurysm (A AA) Screen Completed 08/22/2024, 07/14/2021, 12/25/2014 Medical Devices Implanted Type Area Snapper On Device Identifier Shelf Expiration Date Model / Serial / Lot Stent-09/03/1999 Implanted:09/03 (Quantity not on file) Stent Coronary Procedures Procedure Name Priority Date/Time Associated Diagnosis Comments CT ABDOMEN PELVIS W WO CONTRAST Schedule Routine, Read Routine (OP Routine) 08/22/2024 10:52 AM SLOT FLOORPERSON Gross hematuria POCT HEMOGLOBIN A1C Routine 07/10/2024 11:46 AM SLOT FLOORPERSON Type 2 diabetes mellitus with hypoglycemia without coma, with long-term current use of insulin (HCC) EGFR Routine 04/09/2024 12:08 PM CDT Type 2 diabetes mellitus with hyperglycemia, with long-term current use of insulin (HCC) LIPID PANEL Routine 04/09/2024 12:08 PM CDT Type 2 diabetes mellitus with hyperglycemia, with long-term current use of insulin (HCC) ALBUMIN CREATININE RATIO, URINE Routine 10/09/2023 1:41 PM SLOT FLOORPERSON Type 2 diabetes mellitus without complication, with long-term current use of insulin (HCC) PSA SCREEN Routine 09/28/2023 12:15 PM SLOT FLOORPERSON Benign prostatic hyperplasia with urinary frequency CT LUNG CANCER SCREENING Schedule Routine, Read Routine (OP Routine) 2023 3:24 PM SLOT FLOORPERSON Personal history of nicotine dependence DIABETIC EYE EXAM Routine 11/20/2022 COLONOSCOPY 05/05/2022 9:39 AM CDT HEPATITIS C ANTIBODY Routine 06/10/2020 8:49 AM CDT from Last 3 Months or Most Recently Relevant to Health Maintenance Results * CT Abdomen Pelvis W WO Contrast (08/22/2024 10:52 AM SLOT FLOORPERSON) Anatomical Region Laterality Modality Body N/A Computed Tomogra phy 08/31/2024 8:37 AM SLOT FLOORPERSON Narrative 08/31/2024 8:43 AM SLOT FLOORPERSON EXAM DESCRIPTION: CT ABDOMEN PELVIS W WO [...] Electronically signed by Sanjiv Beach M.D. CH: Report ID: [id number] Reading Location: [place] [address] Procedure Note Sanjiv Beach Jr., MD - [...] Sanjiv Beach M.D. CH: LALITHA Report ID: [id number] Reading Location: [id number] us Daja Carroll NP IMG CT PROCEDURES Final Result * POCT hemoglobin A1c (07/10/2024 11:46 AM SLOT FLOORPERSON) Hemoglobin A1C, POC 7.7 4.0 - 5.6 % Blood 07/10/2024 11:4 6 AM SLOT FLOORPERSON us Daja Carroll NP POINT OF CARE [...] 8 PM CDT 04/09/2024 7:35 PM CDT Daja Carroll NP LAB BLOOD ORDERABLES Final Resul t [facility] [id number] [place] [address] * Lipid panel (04/09/2024 12:08 PM CDT) [...] on 2018. Triglycerides 69 <=149 mg/dL [facility] Comment: Interpretive Data Ages < or = [...] on 2018. HDL 70 >=40 mg/dL [facility] Comment: Interpretive Data Ages < or = [...] 2018. LDL, calculated 112 <=129 mg/dL [facility] Comment: Interpretive Data Ages < or = [...] on 2018. Non-HDL Cholesterol 126 mg/dL [facility] Comment: Interpretive Data Ages < or = [...] last revised on 2018. Chol/HDL ratio 3 [facility] Blood 04/09/2024 12:0 8 PM CDT 04/09/2024 7:33 PM CDT Daja Carroll TRAVEL PT LAB BLOOD ORDERABLES Final Resul t Performing Organization Address [facility] Co de Phone Number MARCINSAR[facility] [address] [place] [address] * Albumin Creatinine Ratio, Urine (10/09/2023 1:41 PM SLOT FLOORPERSON) Albumin Ur <12.0 mg/L [facility] Comment: Interpretive Data No reference range established. Current interpretive data was last revised 2019. Creatinine Ur 41.3 mg/dL [facility] Comment: Interpretive Data No reference range established. Current interpretive data was last revised 2019. Albumin Creatinine Ratio, Ur <29 1 - 29 mg/g [facility] Urine 10/09/2023 1:41 PM SLOT FLOORPERSON 10/09/2023 8:30 PM SLOT FLOORPERSON us Daja Carroll TRAVEL PT LAB URINE ORDERABLES Final Resul t Performing Organization Address [facility] de Phone Number MARCINSARAI DOTY [address] [employer] [place], [place] [id number] * PSA screen (09/28/2023 12:15 PM SLOT FLOORPERSON) PSA-Total 1.02 <=6.20 ng/mL [facility] Comment: Interpretive Data AGE SEX REFERENCE INTERVAL [...] revised 22. Blood 09/28/2023 12:1 5 PM SLOT FLOORPERSON 09/28/2023 8:09 PM SLOT FLOORPERSON us Daja Carroll NP LAB BLOOD ORDERABLES Final Resul t [facility] [address] [address] [place] [address] * CT Lung Cancer Screening (2023 3:24 PM SLOT FLOORPERSON) Anatomical Region Laterality Modality Chest N/A Computed Tomogra phy 07/31/2023 7:30 AM SLOT FLOORPERSON Narrative 07/31/2023 7:38 AM SLOT FLOORPERSON EXAM DESCRIPTION: CT LUNG CANCER SCREENING REASON [...] Lokesh Hassan D.O. PS T: Report ID: [id number] Reading Location: [id number] Procedure Note Lokesh Hassan DO - 07/31/2023 EXAM DESCRIPTION: CT LUNG [...] 7:38 AM - Electronically signed by Lokesh FERRERA T: Report ID: [id number] Reading Location: [id number] Daja Carroll TRAVEL PT IMG CT PROCEDURES Final Result * Diabetic Eye Exam (11/20/2022) Historical Provider HEALTH MAINTENANCE Final Result * COLONOSCOPY (05/05/2022 9:39 AM CDT) Anatomical Region Laterality Modality Other Narrative Procedure Note Ruel Rodgers MD - 05/05/2022 9:39 AM CDT [facility] Patient Name: Richard Argueta Procedure Date: 05/05/2022 9:39 AM Date of : 1950 Admit Type: Outpatient Age: 71 Gender: Male Attending MD: Ruel Rodgers M.D. Room: [facility] ROOM 2 Note Status: Finalized Patient [...] scope was passed under direct vision.The Colonoscope [id number] was introducedthrough the anus and advanced to [...] 9:39 AM Procedure Code(s): --- Professional --- 92309, Colonoscopy, flexible; with removal of tumor(s), polyp(s), or other lesion(s) by hot biopsy forceps Diagnosis Code(s): --- Professional --- K57.30, Diverticulosis of large intestine without perforation orabscess without bleeding D12.5, Benign neoplasm of sigmoid colon K64.9, Unspecified hemorrhoids Z86.010, Personal history of colonic polyps CPT copyright 2020 [employer]. All rights reserved. The codes documented in this report are preliminary and upon car body mechanic reviewmay be revised to meet current compliance requirements. Recognized by the [employer] for promoting quality [...] a test for HCV RNA (test code 74917) is suggested. For additional information please refer to http://education.Meeps.[employer]/faq/HOH20a2 (This link is being provided for informational/ educational purposes only.) 06/10/2020 8:49 AM CDT 06/10/2020 8:59 AM CDT Narrative [facility] - 06/11/2020 10:43 AM CDT FASTING:YES PATIENT REFUSED SOME TESTING; PATIENT ENCOURAGED TO RETURN. FASTING: YES us Niranjan Potter DO LAB MICROBIOLOGY - GENER AL ORDERABLES Final Result [facility] [address] [place] [id number] from Last 3 Months or Most Recently Relevant to Health Maintenance Insurance [facility] MEDICARE ADV [facility] MEDICARE ADV Advance Directives For more information, please contact: [phone] * Full Code (Latest Code Status on File) Date Activated Date Inactivated Comments 05/05/2022 9:32 AM 05/05/2022 3:25 PM * Full Code Date Activated Date Inactivated Comments 05/05/2022 9:32 AM 05/05/2022 9:32 AM Care Teams Knuckle Strap Sewer Relationship Specialty Start Date End Date Jael Fields NP [address] [place] [address] [place] [address] PCP - General Internal Medicine 10/28/24
--- OUTSIDE RECORDS SUMMARY | 2024-11-13 11:14 | XMS_ITS | Encounter Summary ---
Author Organization [facility] Care Team Providers Care Perch Mender Name Role Phone Niranjan Potter DO Primary Care Provider + Ruel Root MD Primary Care Provider [phone] Daja Carroll NP Primary Care Provider [phone] Jael Fields STERNMAN Primary Care Provider [phone] Encounter Details Date Type Department Care Team (Latest Contact Info) Description 11/03/2016 Orders Only [facility] ProviderFelicia MD [address] [place] [id number] Social History Tobacco Use Types Packs/Day Years Used Date Smoking Tobacco: Never Assessed Sex and Gender Information Value Date Recorded Sex Assigned at Not on file Legal Sex Male 6:33 PM PRINTING PRESSMAN Gender Identity Not on file Sexual Orientation Not on file documented as of this encounter Plan of Treatment Not on file documented as of this encounter Procedures Procedure Name Priority Date/Time Associated Diagnosis Comments CARDIOLOGY REPORT 11/03/2016 12: 00 AM PRINTING PRESSMAN documented in this encounter Results * CARDIOLOGY REPORT (11/03/2016 12:00 AM PRINTING PRESSMAN) Anatomical Region Laterality Modality Other Narrative 11/03/2016 12:00 AM PRINTING PRESSMAN Ordered by an unspecified provider. Historical Provider [facility] NICHO REYES Final Result documented in this encounter Visit Diagnoses Not on filedocumented in this encounter Care Teams Perch Mender Relationship Specialty Start Date End Date Niranjan Potter DO [address] [address] PCP - General Family Medicine 03/31/20 06/20/21 Ruel Root MD [address] [facility] [address] [place] [address] PCP - General Family Medicine 06/21/21 06/18/23 [place] [address] [place] [address] [address] [place], [place] [id number] PCP - General Family Medicine 06/19/23 10/27/24 Jael Fields NP [address] [facility] [address] [place], [place] [id number] PCP - General Internal Medicine 10/28/24 documented as of this encounter
--- OUTSIDE RECORDS SUMMARY | 2024-11-13 11:14 | XMS_ITS | Clinical Summary ---
Author Organization [facility] Address [address] [place] [id number] Care Team Providers Care Slot Technician Name Role Phone Ronal Lopez DO Primary Care Provider Social History Tobacco Use Types Packs/Day Years Used Date Smoking Tobacco: Never Assessed Sex and Gender Information Value Date Recorded Sex Assigned at Not on file Legal Sex Male 11:24 PM CDT Gender Identity Not on file Sexual Orientation Not on file Last Filed Vital Signs Vital Sign Reading Time Taken Comments Blood Pressure 120/72 10/06/2016 4:14 PM ROLLER HAND Pulse 84 10/06/2016 4:14 PM ROLLER HAND Temperature - - Respiratory Rate - - Oxygen Saturation - - Inhaled Oxygen Concentration - - Weight 91.2 kg (201 lb) 10/06/2016 4:14 PM ROLLER HAND Height 179.1 cm (5' 10.5 ) 10/06/2016 4:14 PM CS T Body Mass Index 28.43 10/06/2016 4:14 PM ROLLER HAND Plan of Treatment Health Maintenance Due Date Last Done Comments Hepatitis C 1969 Zoster Vaccines (1 of 2) 2001 DTaP, Tdap and Td Vaccines ( 1 - Tdap) 06/04/2006 06/03/2006 Pneumococcal Vaccine: 65+ Ye ars (2 of 2 - PPSV23 or PCV20) 2016 10/02/2014 COVID-19 Vaccine ( - 2023-2 5 season) 2024 Colorectal Cancer Screening Colonoscopy (10 Years) 06/03/2024 06/03/2014 Influenza Adult (#1) 2024 RSV Immunization or 60+ Years (1 - 1-dose 75+ series) 2026 Meningococcal B Vaccine Aged Out No l onger eligible based on patient's age to complete this topic Meningococcal Vaccine Aged Out No baldemar ena eligible based on patient's age to complete this topic RSV Immunizations Under 20 Months Aged Out No longer eligible based on patient's age to complete this topic Procedures Procedure Name Priority Date/Time Associated Diagnosis Comments COLONOSCOPY Routine 06/03/2014 12:00 AM CDT from Last 3 Months or Most Recently Relevant to Health Maintenance Results * Colonoscopy (06/03/2014 12:00 AM CDT) 06/03/2014 06/03/2014 Narrative [facility] TO EPIC CONVERSION - 06/03/2014 12:00 AM CDT Documented hx of procedure Procedure Note , Generic Conversion, - 07/07/2018 Documented hx of procedure us Generic Conversion Md [facility] PROCEDURE ORDERABLES Final Result [facility] TO EPIC CONVERSION from Last 3 Months or Most Recently Relevant to Health Maintenance Care Teams Slot Technician Relationship Specialty Start Date End Date Ronal Lopez DO PCP - General 12/25/14
--- OUTSIDE RECORDS SUMMARY | 2024-11-13 11:14 | XMS_ITS | Clinical Summary ---
Author Organization [facility] Address [address] [facility] [place] [address] Care Team Providers Care Patrol Community Service Officer Name Role Phone Unavailable Primary Care Provider Unavailabl e Source Comments [facility],non-owned Affiliates and Associated Physician Practices is amultiple site organization consisting of ambulatory clinics and hospital sitesin [place], [place], [place] and [place]. This disclosure is being madepursuant to the Care Everywhere program and may not contain all information available regarding this patient. Last updated 18.[facility] Social History Tobacco Use Types Packs/Day Years Used Date Smoking Tobacco: Never Assessed Sex and Gender Information Value Date Recorded Sex Assigned at Not on file Gender Identity Not on file Sexual Orientation Not on file Plan of Treatment Health Maintenance Due Date Last Done Comments COLOGUARD (AGES 45-75) - COL ON CA SCREENING 1950 COLON MONITORING 1950 COLONOSCOPY - COLON CA SCREENING 1950 CT COLONOGRAPHY - COLON CA SCREENING 1950 Colorectal Cancer Screening 1950 FIT - COLON CA SCREENING 1950 FLEX SIG - COLON CA SCREENING 1950 LIPID TESTING 1950 HEPATITIS C SCREENING 07/25/1969 DTAP/TDAP/TD VACCINES (1 - Tdap) 1970 PNEUMOCOCCAL VACCINE 50+ (1 of 1 - PCV) 2001 ZOSTER VACCINE (1 of 2) 2001 COVID-19 VACCINE ( - 2023-2 5 season) 2024 INFLUENZA VACCINE (#1) 2024 DEPRESSION SCREENING 09/03/2024 Respiratory Syncytial Virus (RSV) Vaccine Pt: or over 60 yrs (1 - 1-dose 75+ series) 2026 HEPATITIS B VACCINE Aged Out No longe r eligible based on patient's age to complete this topic HIB VACCINE Aged Out No longer eligi ble based on patient's age to complete this topic HPV VACCINE Aged Out No longer eligi ble based on patient's age to complete this topic MENINGOCOCCAL (Group B) VACC INE SHARED DECISION-MAKING Aged Out No longer eligibl e based on patient's age to complete this topic MENINGOCOCCAL GROUPS A/C/Y/W VACCINE Aged Out No longer eligible b ased on patient's age to complete this topic
--- OUTSIDE RECORDS SUMMARY | 2024-11-13 11:14 | XMS_ITS | Referral Summary ---
Author Organization [facility] Address [address] [place] [address] Care Team Providers Care Egg Worker Name Role Phone Unavailable Primary Care Provider Unavailabl e Source Comments [facility],non-owned Affiliates and Associated Physician Practices is amultiple site organization consisting of ambulatory clinics and hospital sitesin [place], [place] and [place]. This disclosure is being madepursuant to the Care Everywhere program and may not contain all information available regarding this patient. Last updated 18.[facility] [place] Social History Tobacco Use Types Packs/Day Years Used Date Smoking Tobacco: Never Assessed Sex and Gender Information Value Date Recorded Sex Assigned at Not on file Gender Identity Not on file Sexual Orientation Not on file Plan of Treatment Not on file
[2024-11-13 13:35] LABS: Basophils Absolute Auto 0.1 K/mm3 (0.0-0.1); Basophils Percent Auto 0.9 % (0.2-1.2); Eosinophils Absolute Auto 0.1 K/mm3 (0-0.3); Eosinophils Percent Auto 1.2 % (0-4.4); Hematocrit 46.6 % (42.0-52.0); Hemoglobin 15.1 g/dL (14.0-18.0); Immature Granulocyte Absolute 0.02 K/mm3 (0.00-0.031); Immature Granulocyte Percent A 0.3 % (0-0.5); Lymphocytes Absolute Auto 1.54 K/mm3 (0.9-3.2); Lymphocytes Percent Auto 26.5 % (18.3-44.2); Mean Corpuscular HGB Conc 32.4 g/dl (32-36); Mean Corpuscular Hemoglobin 33.2 pg (26-34); Mean Corpuscular Volume 102.4 fl (80-100); Mean Platelet Volume 10.4 fl (7.4-10.4); Monocytes Absolute Auto 0.7 K/mm3 (0.1-0.6); Monocytes Percent Auto 11.9 % (2.6-8.5); Neutrophils Absolute Auto 3.5 K/mm3 (1.3-6.7); Neutrophils Percent Auto 59.2 % (45.5-73.1); Platelet Count Result 203 k/mm3 (150-375); Red Blood Count 4.55 M/mm3 (4.6-6.20); Red Cell Distribution Width 13.1 % (11.5-14.5); White Blood Count 5.8 K/mm3 (4.5-10.0)
[2024-11-13 13:42] LABS: Creatinine Urine 73.4 mg/dL
[2024-11-13 13:52] LABS: MALB Creatinine Ratio < 8.2 mg/g (0-30); Microalbumin Urine Random < 6.0 mg/L (0-16.7)
[2024-11-13 14:03] LABS: Alanine Aminotransferase 24 U/L (6-50); Albumin Level 4.2 g/dL (3.5-5.1); Alkaline Phosphatase 60 U/L (38-126); Anion Gap 7 mmol/L (4-12); Aspartate Amino Transferase 51 U/L (17-59); Blood Urea Nitrogen 17 mg/dL (9-20); Carbon Dioxide 29 mmol/L (22-30); Chloride 105 mmol/L (98-107); Cholesterol 177 mg/dL (0-200); Estimated Glomerular Filt Rate > 60; Glucose 115 mg/dL (65-110); Potassium 4.4 mmol/L (3.4-5.0); Sodium 141 mmol/L (137-145); Triglycerides 92 mg/dL (<150)
[2024-11-13 14:13] LABS: LDL Cholesterol Direct 77 mg/dL
[2024-11-13 14:15] LABS: HDL Direct 71 mg/dL
[2024-11-13 14:30] LABS: Prostate Specific Antigen 0.9 ng/mL (< OR = 4.0)
[2024-11-13 18:05] LABS: Hemoglobin A1C 6.9 % (<5.7)
== END 2024-11-13 09:51 | disposition home or self-care (01) ==
LOC: ANHGOSHLAB 09:51
PROVIDERS: PCP Internal Medicine; Visit Provider Nurse Practitioner
DX: E11.9 Type 2 diabetes mellitus without complications (principal); I25.10 Atherosclerotic heart disease of native coronary artery without angina pectoris; Z12.5 Encounter for screening for malignant neoplasm of prostate
CPT/HCPCS: 36415; 80053; 80061; 82043; 83036; 84153; 85025; G0103

== ENCOUNTER 2025-04-21 08:31 | Outpatient (CLI) | payer OTHER, SELFPAY ==
--- OUTSIDE RECORDS SUMMARY | 2025-04-20 11:30 | XMS_ITS | Encounter Summary ---
Author Organization [facility] Healthcare Address [address] [place] [address] Care Team Providers Care Student Life Dean Name Role Phone Jael Fields NP Primary Care Provider [phone] Reason for Visit * Reason Comments Follow-up 1 yr f/u Coronary Artery Disease Encounter Details Date Type Department Care Team (Late st Contact Info) Description 04/20/2025 11:30 AM CDT Office Visit [facility] Cardiology at [address] [place] [address] Miguel Matson MD [address] [facility] [address] [place] [address] S/P drug eluting coronary stent placement (Primary Dx); Need for lipid screening Social History Tobacco Use Types Packs/Day Years [...] on file 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 Gender Identity Not on file Sexual Orientation Not on file documented as of this encounter Last Filed Vital Signs Vital Sign Reading Time Taken Comments Blood Pressure 122/72 04/20/2025 11:38 AM CDT Pulse 83 04/20/2025 11:38 AM CDT Temperature - - Respiratory Rate - - Oxygen Saturation 98% 04/20/2025 11:38 AM CDT Inhaled Oxygen Concentration - - Weight 86 kg (189 lb 9.6 oz) 04/20/2025 11:38 AM CDT Height 180.3 cm (5' 11) 04/20/2025 11:38 AM CDT Body Mass Index 26.44 04/20/2025 11:38 AM CDT documented in this encounter Progress Notes * Miguel Matson MD - 04/20/2025 11:30 AM CDT [facility] FOLLOW UP 04/20/2025 Richard Argueta is a 74 y.o. male who presents for follow up of coronary artery disease. This is a patient with a history of coronary disease dating back to the year 1999 when he presented to a hospital elsewhere with acute coronary syndrome. He underwent percutaneous revascularization of the circumflex into the 1st OM branch with a drug-eluting stent and has done well since then. His right coronary artery is known to be a chronic total occlusion which is collateralized. The chart indicated a follow-up catheterization was done by his previous physician in 2020 investigating an abnormal stress test. The results according to the reports in the chart are favorable of that. He did have some mildnon flow-limiting disease seen in the LAD at that time. The patient transitioned his care to our practice in 2023. He returns to the office today for scheduled follow-up. He has no cardiac complaints or symptoms. He is fully active and does not have any exertional shortness of breath or chest pain. Spent a good deal of time talking to him about his lipid management. He is going to get his lipids checked again We of this week before his PCP appointment. I told him we would be wanting to review those if his LDL is still not at goal would recommend adding ezetimibe 10 mg daily to his regimen. REVIEW OF SYSTEMS General ROS: negative for - chills, fatigue, fever, malaise, night sweats, weight gain or weight loss Psychological ROS: negative for - anxiety, depression, memory difficulties or sleep disturbances Ophthalmic ROS: negative for - blurry vision, decreased vision, loss of vision or scotomata ENT ROS: negative for - epistaxis, headaches, hearing change, nasal congestion, nasal discharge, sore throat, vertigo or visual changes Hematological and Lymphatic ROS: negative for - bleeding problems, blood clots, bruising, fatigue or weight loss Endocrine ROS: negative for - hot flashes, palpitations, polydipsia/polyuria or unexpected weight changes Respiratory ROS: negative for - cough, hemoptysis, orthopnea, shortness of breath, tachypnea or wheezing Cardiovascular ROS: negative for - chest pain, dyspnea on exertion, edema, irregular heartbeat, loss of consciousness, murmur, orthopnea, palpitations, paroxysmal nocturnal dyspnea, rapid heart rate or shortness of breath Gastrointestinal ROS: negative for - abdominal pain, appetite loss, blood in stools, constipation, diarrhea, gas/bloating, heartburn, hematemesis, melena or nausea/vomiting Genito-Urinary ROS: negative for - dysuria, erectile dysfunction or hematuria Musculoskeletal ROS: negative for - joint pain, muscle pain or muscular weakness Dermatological ROS: negative for dry skin, eczema, pruritus and rash HOME MEDICATIONS Current Outpatient Medications: aspirin 81 mg enteric coated tablet, Take 1 tablet (81 mg total) by mouth daily, Disp: , Rfl: blood-glucose sensor device, 1 each every 14 (fourteen) days To continuous monitor blood glucose. Change every 14 days, Disp: 2 each, Rfl: 11 blood-glucose sensor device, Inject 1 each under the skin every 14 (fourteen) days, Disp: 4 each, Rfl: 2 empagliflozin (Jardiance) 25 mg tablet, Take 1 tablet (25 mg total) by mouth daily, Disp: 90 tablet, Rfl: 1 glipiZIDE XL (GLUCOTROL XL) 5 mg 24 hr tablet, Take 1 tablet (5 mg total) by mouth daily, Disp: 90 tablet, Rfl: 1 insulin degludec-liraglutide (Xultophy 100/3.6) 100 unit-3.6 mg /mL (3 mL) insulin pen pen, Inject 20 Units under the skin nightly, Disp: 15 mL, Rfl: 3 losartan (COZAAR) 25 mg tablet, Take 1 tablet (25 mg total) by mouth daily, Disp: 90 tablet, Rfl: 1 metFORMIN XR (GLUCOPHAGE XR) 500 mg 24 hr tablet, Take 1 tablet (500 mg total) by mouth daily with breakfast, Disp: 180 tablet, Rfl: 1 metoprolol tartrate (LOPRESSOR) 50 mg immediate release tablet, TAKE 1 TABLET(50 MG) BY MOUTH DAILY, Disp: 90 tablet, Rfl: 0 nitroglycerin (NITROSTAT) 0.4 mg SL tablet, Place 1 tablet (0.4 mg total) under the tongue every 5 (five) minutes as needed for chest pain, Disp: 90 tablet, Rfl: 0 pen needle, diabetic (BD Karolyn 2nd Gen Pen Needle) 32 gauge x 5/32 needle, Use to inject insulin asdirected, Disp: 100 each, Rfl: 1 rosuvastatin (CRESTOR) 40 mg tablet, TAKE 1 TABLET(40 MG) BY MOUTH DAILY, Disp: 100 tablet, Rfl: 0 triamcinolone (KENALOG) 0.1 % ointment, Apply topically 2 (two) times a day as needed for irritation or rash, Disp: 30 g, Rfl: 0 LABS AND OTHER DIAGNOSTIC TESTS Lab Results Component Value Date CHOL 196 04/09/2024 CHOL 211 (H) 09/28/2023 CHOL 199 06/19/2023 Lab Results Component Value Date HDL 70 04/09/2024 HDL 65 09/28/2023 HDL 74 06/19/2023 Lab Results Component Value Date LDLCALC 112 04/09/2024 LDLCALC 125 09/28/2023 LDLCALC 100 06/19/2023 Lab Results Component Value Date TRIG 69 04/09/2024 TRIG 107 09/28/2023 TRIG 123 06/19/2023 Lab Results Component Value Date CHOLHDL 3 04/09/2024 CHOLHDL 3 09/28/2023 CHOLHDL 3 06/19/2023 Lab Results Component Value Date WBC 8.1 04/09/2024 HGB 15.9 04/09/2024 HCT 47.5 04/09/2024 MCV 100.0 (H) 04/09/2024 No lab exists for component: LABALBU PHYSICAL EXAM Vitals BP 122/72 (BP Location: Right arm, Patient Position: Sitting) Pulse 83 Ht 180.3 cm (5' 11) Wt 86 kg (189 lb 9.6 oz) SpO2 98% BMI 26.44 kg/m?? Physical Examination: General appearance - alert, well appearing, and in no distress, oriented to person, place, and time and acyanotic, in no respiratory distress Mental status - affect appropriate to mood Eyes - extraocular eye movements intact, sclera anicteric, no pallor Ears - external earsappear normal, hearing grossly normal bilaterally Nose - normal and patent, no erythema or discharge Mouth - mucous membranes moist, pharynx appears normal, dental hygiene good and tongue normal Neck - supple, no significant neck masses, carotids upstroke normal bilaterally, no bruits, no JVD Chest - clear to auscultation, no wheezes, rales or rhonchi, symmetric air entry, no tachypnea, retractions or cyanosis Heart - normal rate, regular rhythm, normal S1, S2, no murmurs, rubs, clicks or gallops, no JVD Abdomen - soft, nontender, nondistended, no masses or organomegaly bowel sounds normal Neurological - alert, oriented, normal speech, no focal findings or movement disorder noted Musculoskeletal - no joint tenderness, deformity or swelling, no muscular tenderness noted Extremities - peripheral pulses normal, no pedal edema, no clubbing or cyanosis Skin - normal coloration and turgor, no rashes, no suspicious skin lesions noted ASSESSMENT Richard Nettles was seen today for follow-up and coronary artery disease. Diagnoses and all orders for this visit: S/P drug eluting coronary stent placement PLAN/RECOMMENDATIONS Continue his regimen of aspirin rosuvastatin and metoprolol for his chronic stable coronary disease If his follow-up LDL on Sunday is greater than 70 would recommend adding ezetimibe to his rosuvastatin I do not believe the point of care lipids in the office today are accurate. He is having formal lab data done Sunday of this week as he mentioned Follow-up with me annually or p.r.n. Miguel Matson MD documented in this encounter Plan of Treatment Not on file documented as of this encounter Procedures Procedure Name Priority Date/Time Associated Diagnosis Comments POCT LIPID PANEL Routine 04/20/2025 11:5 1 AM CDT Need for lipid screening documented in this encounter Results * (ABNORMAL) POCT lipid panel (04/20/2025 11:51 AM CDT) Cholesterol, POC 259 <200 MG/DL Comment:GLU = 110 HDL, POC 53 >=40 mg/dL Triglycerides, POC 113 <=149 mg/dL LDL Cholesterol POC 184(A) <=129 mg/dL Chol/HDL Ratio, POC 4.9 NONE Non-HDL Cholesterol, POC 206 NONE mg/dL Cholesterol Total, POC 259(A) 30 - 199 mg/dL Capillary blood 04/20/2025 1 1:51 AM CDT us Miguel Matson MD POINT OF CARE TEST ORDER PASHA Final Result documented in this encounter Visit Diagnoses Diagnosis S/P drug eluting coronary stent placement- Primary Need for lipid screening Screening for lipoid disorders documented in this encounter Care Teams Student Life Dean Relationship Specialty Start Date End Date Jael Fields NP [address] [facility] [address] [place] [address] PCP - General Internal Medicine 10/28/24 documented as of this encounter
--- OUTSIDE RECORDS SUMMARY | 2025-04-21 08:52 | XMS_ITS | Clinical Summary ---
Author Organization [facility] Address [address] [place] [address] Care Team Providers Care Apartment Hotel Manager Name Role Phone Unavailable Primary Care Provider Unavailabl e Source Comments [facility] [employer],non-owned Affiliates and Associated Physician Practices is amultiple site organization consisting of ambulatory clinics and hospital sitesin [place], [place], [place] and [place]. This disclosure is being madepursuant to the Care Everywhere program and may not contain all information available regarding this patient. Last updated 18.[facility] [employer] Social History Tobacco Use Types Packs/Day Years Used Date Smoking Tobacco: Never Assessed Sex and Gender Information Value Date Recorded Sex Assigned at Not on file Legal Sex Male 4:23 PM CDT Gender Identity Not on file [...] VACCINE ( - 2023-2 5 season) 2024 DEPRESSION SCREENING 09/03/2024 INFLUENZA VACCINE (#1) 2025 Respiratory Syncytial Virus (RSV) Vaccine Pt: or [...] on patient's age to complete this topic Insurance [facility] Address: [facility] [id number] HAYDE MOORE [id number]
--- OUTSIDE RECORDS SUMMARY | 2025-04-21 08:52 | XMS_ITS | Encounter Summary ---
Author Organization [facility] Address [address] [facility] [place] [address] Care Team Providers Care Oracle Database Analyst Name Role Phone Unavailable Primary Care Provider Unavailabl e Encounter Details Date Type Department Care Team (Late st Contact Info) Description 12/04/2022 Lab Requisition [facility] [address] [facility] [place] [id number] Matt Cazares MD [address] [place] [address] Social History Tobacco Use Types [...] AM CDT) Case Report Dermatopathology Report Case: [id number] Authorizing Provider: Matt Cazares MD Collected: 11/30/2022 03:33 AM Ordering Location: [facility] Received: 12/04/2022 06:51 AM Pathologist: Lindsey Xiong MD Specimen: Skin, left upper chest 4:58 PM CDT DERMATOPATHOLOGY LABORATORY Final Diagnosis Specimen A. SKIN, left upper chest: BENIGN VERRUCOUS KERATOSIS (L82.1) 4:58 PM CDT DERMATOPATHOLOGY LABORATORY at 1658 CDT Clinical History SK R/O Atypia Path# [id number] 3 4:58 PM CDT DERMATOPATHOLOGY LABORATORY Gross Description Specimen A: Received is one formalin filled container labeled with the patient's name and designated left upper chest. The specimen consists of a shave biopsy measuring [id number] mm. Jar 0+. 3 4:58 PM CDT [...] characteristic determined by the Dermatopathology Laboratory at [facility], directed by Dr. Belén Villanueva. These tests need not be, and therefore are not, approved by the [place] Food and Drug Administration. The tests are used for clinical purposes. Billing Codes Specimen Charges Stain Charges 88029 1 3 4:58 PM CDT DERMATOPATHOLOGY LABORATORY Embedded Images 3 4:58 PM CDT DERMATOPATHOLOGY LABORATORY Pathology/Cytolo gy TISSUE SPECIMEN FROM SKIN / Unknown 11/30/2022 3:33 AM CDT 12/04/2022 6:51 AM CDT Matt Cazares MD LAB - PATHOLOGY/CYTOLOGY ORDER PASHA Final Result DERMATOPATHOLOGY LABORATORY [facility] - Department of Dermatology [address] [place] [address], [facility] [phone] documented in this encounter Visit Diagnoses Not on filedocumented in this encounter
--- OUTSIDE RECORDS SUMMARY | 2025-04-21 08:52 | XMS_ITS | Encounter Summary ---
Author Organization [facility] Facility Care Team Providers Care Die Out Worker Name Role Phone Niranjan Potter DO Primary Care Provider + Ruel Root MD Primary Care Provider [phone] Daja Carroll NP Primary Care Provider [phone] Jael Fields NP Primary Care Provider [phone] Encounter Details Date Type Department Care Team (Latest Contact Info) Description 11/03/2016 Orders Only [facility]INCON[facility] ProviderFelicia MD [address] [place] [id number] Social History Tobacco Use Types Packs/Day Years Used Date Smoking Tobacco: Never Assessed Sex and Gender Information Value Date Recorded Sex Assigned at Not on file 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 Historical Provider [facility] NICHO REYES Final Result documented in this encounter Visit Diagnoses Not on filedocumented in this encounter Care Teams Die Out Worker Relationship Specialty Start Date End Date Niranjan Potter DO [address] [place] [address] PCP - General Family Medicine 03/31/20 06/20/21 [place] [address] [place] [address] [address] [place] [address] PCP - General Family Medicine 06/21/21 06/18/23 [place] [address] [place] [address] [address] [place], [place] [id number] PCP - General Family Medicine 06/19/23 10/27/24 Jael Fields NP [address] [facility] [address] [place], [place] [id number] PCP - General Internal Medicine 10/28/24 documented as of this encounter
--- OUTSIDE RECORDS SUMMARY | 2025-04-21 08:53 | XMS_ITS | Clinical Summary ---
Author Organization [facility] Address [address] [place] [id number] Care Team Providers Care Property Management Specialist Name Role Phone Jael Fields NP Primary Care Provider [phone] Allergies No known active allergies Medications aspirin 81 mg enteric coated tablet Take 1 tablet (81 mg total) by mouth daily Active nitroglycerin (NITROSTAT) 0.[address] 1 tablet (0.4 mg total) under the tongue every 5 (five) minutes as needed for chest pain 90 tablet 12/06/19 22 Active triamcinolone (KENALOG) 0.1 % ointment Apply topically 2 (two) times a day as needed for irritation or rash 30 g 03/15/20 23 Active blood-glucose sensor device 1 each every 14 (fourteen) days To continuous monitor blood glucose. Change every 14 days 2 each 10/31/19 24 Active losartan (COZAAR) 25 mg tablet Take 1 tablet (25 mg total) by mouth daily 90 tablet 1 11/26/19 24 Active insulin degludec-liraglu tide (Xultophy 100/3.6) 100 unit-3.6 mg /mL (3 mL) insulin pen pen Inject 20 Units under the skin nightly 15 mL 3 04/09/20 24 Active glipiZIDE XL (GLUCOTROL XL) 5 mg 24 hr tablet Take 1 tablet (5 mg total) by mouth daily 90 tablet 1 05/02/20 24 Active pen needle, diabetic (BD Karolyn 2nd Gen Pen Needle) 32 gauge x 5/32 needle Use to inject insulin as directed 100 each 1 05/16/20 24 Active empagliflozin (Jardiance) 25 mg tabletIndication s:type 2 diabetes mellitus Take 1 tablet (25 mg total) by mouth daily 90 tablet 1 07/10/20 24 Active blood-glucose sensor device Inject 1 each under the skin every 14 (fourteen) days 4 each 2 07/18/20 24 Active metFORMIN XR (GLUCOPHAGE XR) 500 mg 24 hr tablet Take 1 tablet (500 mg total) by mouth daily with breakfast 180 tablet 1 10/06/19 25 Active rosuvastatin (CRESTOR) 40 mg tablet TAKE 1 TABLET(40 MG) BY MOUTH DAILY 100 tablet 10/13/19 25 Active metoprolol tartrate (LOPRESSOR) 50 mg immediate release tabletIndication s:Essential (primary) hypertension TAKE 1 TABLET(50 MG) BY MOUTH DAILY 90 tablet 04/09/20 25 Active metoprolol tartrate (LOPRESSOR) 50 mg immediate release tabletIndication s:Essential (primary) hypertension Take 1 tablet (50 mg total) by mouth daily 90 tablet 1 10/06/19 25 025 Discontinued Active Problems Problem Noted Date Diagnosed Date S/P drug eluting coronary stent placement 2023 Diabetes mellitus 03/15/2023 Encounter for screening colonoscopy 02/10/2022 Overview (02/10/2022): Added automatically from request for surgery [id number] Pulmonary nodule 11/30/2021 Refractive error 08/16/2021 Age-related nuclear cataract, bilateral 08/16/20 21 senior living (current) use of oral hypoglycemic laurel gs [...] 08/05/2020 Assessment & Plan (07/10/2024 12:41 PM VIDEOTAPE EDITOR): A1c in office today 7.7%, previous 6.7% [...] started. Assessment & Plan (10/09/2023 2:04 PM VIDEOTAPE EDITOR): A1c worsened from 7.8 to 8.6% Dietary [...] 10/17/2016 Assessment & Plan (07/10/2024 12:40 PM VIDEOTAPE EDITOR): BP stable in office today. Continuing current [...] Encounters Date Type Department Care Team Description 04/20/2025 11:30 AM CDT Office Visit [facility] at [address] [place] [address] Miguel Matson MD S/P drug eluting coronary stent placement (Primary Dx); Need for lipid screening from Last 3 Months Immunizations Immunization Administration [...] feet Colon polyp Type 2 diabetes mellitus Hyperlipidemia Skin cancer Family History Medical History [...] on file Legal Sex Male 6:33 PM VIDEOTAPE EDITOR Gender Identity Not on file Sexual Orientation Not on file Obstetrics History Last Filed Vital Signs Vital Sign Reading Time Taken Comments Blood Pressure 122/72 04/20/2025 11:38 AM CDT Pulse 83 04/20/2025 11:38 AM CDT Temperature 36.4 C (97.5 F) 07/10/2024 11:29 AM VIDEOTAPE EDITOR Respiratory Rate 16 04/02/2024 11:12 AM CDT Oxygen Saturation 98% 04/20/2025 11:38 AM CDT Inhaled Oxygen Concentration - - Weight 86 kg (189 lb 9.6 oz) 04/20/2025 11:38 AM CDT Height 180.3 cm (5' 11) 04/20/2025 11:38 AM CDT Body Mass Index 26.44 04/20/2025 11:38 AM CDT Plan of Treatment Health Maintenance Due Date Last Done Comments Hepatitis B Screening 1969 Pneumococcal vaccine 65+ (1 of 2 - PCV) 1970 Zoster Vaccine (1 of 2) 2001 Dilated Eye Exam 11/21/2023 11/20/2022, , 08/16/2021 Well Visit 65+ 12/07/2023 12/06/2022, 05/06/2020 Covid-19 Vaccine ( - 2023-2 5 season) 2024 06/19/2022, 08/02/2021, 01/04/2021, Additional history exists Lung Cancer Screening 2024 2023 Albumin Creatinine Ratio, Urine 10/09/2024 10/09/2023, 09/13/2022, 11/30/2021, Additional history exists Hemoglobin A1C 01/07/2025 07/10/2024, 07/1 , 01/08/2024, Additional history exists Foot Exam 04/09/2025 04/09/2024, 12/06/2022 eGFR 04/09/2025 04/09/2024, 09/04, 06/19/2023, Additional history exists Influenza Vaccine (#1) 2025 08/05/2020 Depression Screening 07/10/2025 07/10/2024, 04/09/2024, 01/08/2024, Additional history exists Fall Risk Assessment 07/10/2025 07/10/2024, 01/08/2024, 06/19/2023, Additional history exists Lipid Panel 04/20/2026 04/20/2025, 0803/2024, 09/28/2023, Additional history exists Colon Cancer Screening-Colonoscopy 05/05/2032 [...] 07/14/2021, 12/25/2014 Medical Devices Implanted Type Area Wash House Worker Device Identifier Shelf Expiration Date Model / Serial / Lot Stent-09/03/1999 Implanted:09/03 (Quantity not on file) Stent Coronary Procedures Procedure Name Priority Date/Time Associated Diagnosis Comments POCT LIPID PANEL Routine 04/20/2025 11:5 1 AM CDT Need for lipid screening CT ABDOMEN PELVIS W WO CONTRAST Schedule Routine, Read Routine (OP Routine) 08/22/2024 10:52 AM VIDEOTAPE EDITOR Gross hematuria POCT HEMOGLOBIN A1C Routine 07/10/2024 11:46 AM VIDEOTAPE EDITOR Type 2 diabetes mellitus with hypoglycemia without coma, with long-term current use of insulin (HCC) EGFR Routine 04/09/2024 12:08 PM CDT Type 2 diabetes mellitus with hyperglycemia, with long-term current use of insulin (HCC) ALBUMIN CREATININE RATIO, URINE Routine 10/09/2023 1:41 PM VIDEOTAPE EDITOR Type 2 diabetes mellitus without complication, with long-term current use of insulin (HCC) PSA SCREEN Routine 09/28/2023 12:15 PM VIDEOTAPE EDITOR Benign prostatic hyperplasia with urinary frequency CT LUNG CANCER SCREENING Schedule Routine, Read Routine (OP Routine) 2023 3:24 PM VIDEOTAPE EDITOR Personal history of nicotine dependence DIABETIC EYE EXAM Routine 11/20/2022 COLONOSCOPY 05/05/2022 9:39 AM CDT HEPATITIS C ANTIBODY Routine 06/10/2020 8:49 AM CDT from Last 3 Months or Most Recently Relevant to Health Maintenance Results * (ABNORMAL) POCT lipid panel (04/20/2025 [...] OF CARE TEST ORDER PASHA Final Result * CT Abdomen Pelvis W WO Contrast (08/22/2024 10:52 AM VIDEOTAPE EDITOR) Anatomical Region Laterality Modality Body N/A Computed Tomogra phy 08/31/2024 8:37 AM VIDEOTAPE EDITOR Narrative 08/31/2024 8:43 AM VIDEOTAPE EDITOR EXAM DESCRIPTION: CT ABDOMEN PELVIS W WO [...] by Sanjiv Beach M.D. CH: Report ID: [id number] Reading Location: [place] [address] Procedure Note Sanjiv Beach Jr., MD - [...] Sanjiv Beach M.D. CH: LALITHA Report ID: [id number] Reading Location: [id number] us Daja Carroll TELEHEALTH CASE MANAGER IMG CT PROCEDURES Final Result * POCT hemoglobin A1c (07/10/2024 11:46 AM VIDEOTAPE EDITOR) Hemoglobin A1C, POC 7.7 4.0 - 5.6 % Blood 07/10/2024 11:4 6 AM VIDEOTAPE EDITOR us Daja Carroll NP POINT OF CARE [...] LAB BLOOD ORDERABLES Final Resul t ROGERIO [address] [place] [address] * Albumin Creatinine Ratio, Urine (10/09/2023 1:41 PM VIDEOTAPE EDITOR) Albumin Ur <12.0 mg/L [facility] Comment: Interpretive Data No reference range established. Current interpretive data was last revised 2019. Creatinine Ur 41.3 mg/dL [facility] Comment: Interpretive Data No reference range established. Current interpretive data was last revised 2019. Albumin Creatinine Ratio, Ur <29 1 - 29 mg/g [facility] Urine 10/09/2023 1:41 PM VIDEOTAPE EDITOR 10/09/2023 8:30 PM VIDEOTAPE EDITOR Daja Carroll TELEHEALTH CASE MANAGER LAB URINE ORDERABLES Final Resul t Performing Organization Address [facility] de Phone Number [facility] [address] [place] [address] * PSA screen (09/28/2023 12:15 PM VIDEOTAPE EDITOR) PSA-Total 1.02 <=6.20 ng/mL [facility] Comment: Interpretive Data AGE SEX REFERENCE [...] revised 22. Blood 09/28/2023 12:1 5 PM VIDEOTAPE EDITOR 09/28/2023 8:09 PM VIDEOTAPE EDITOR us Daja Carroll NP LAB BLOOD ORDERABLES Final Resul t Performing Organization Address [facility] de Phone Number [facility] [address] [place] [address] * CT Lung Cancer Screening (2023 3:24 PM VIDEOTAPE EDITOR) Anatomical Region Laterality Modality Chest N/A Computed Tomogra phy 07/31/2023 7:30 AM VIDEOTAPE EDITOR Narrative 07/31/2023 7:38 AM VIDEOTAPE EDITOR EXAM DESCRIPTION: CT LUNG CANCER SCREENING REASON [...] signed by Lokesh FERRERA T: Report ID: [id number] Reading Location: [id number] Procedure Note Lokesh Hassan, DO - 07/31/2023 [...] Lokesh Hassan D.O. PS T: Report ID: [id number] Reading Location: [id number] Daja Carroll NP IMG CT PROCEDURES Final Result * Diabetic Eye Exam (11/20/2022) Historical Provider HEALTH MAINTENANCE Final Result * COLONOSCOPY (05/05/2022 9:39 AM CDT) Anatomical Region Laterality Modality Other Narrative Procedure Note Ruel Rodgers MD - 05/05/2022 9:39 AM CDT Digestive [facility] Patient Name: Richard Argueta Procedure Date: 05/05/2022 9:39 AM Date of : 1950 Admit Type: Outpatient Age: 71 Gender: Male Attending MD: Ruel Rodgers M.D. Room: [facility] ENDOSCOPY ROOM 2 Note Status: Finalized [...] scope was passed under direct vision.The Colonoscope [id number] was introducedthrough the anus and advanced to [...] 9:39 AM Procedure Code(s): --- Professional --- 75573, Colonoscopy, flexible; with removal of tumor(s), polyp(s), or other lesion(s) by hot biopsy forceps Diagnosis Code(s): --- Professional --- K57.30, Diverticulosis of large intestine without perforation orabscess without bleeding D12.5, Benign neoplasm of sigmoid colon K64.9, Unspecified hemorrhoids Z86.010, Personal history of colonic polyps CPT copyright 2020 [employer]. All rights reserved. The codes documented in this report are preliminary and upon industrial diamond polisher reviewmay be revised to meet current compliance requirements. Recognized by the [employer] [employer] for promoting quality [...] a test for HCV RNA (test code 21382) is suggested. For additional information please refer to http://education.[employer]/faq/RVD07x5 (This link is being provided for informational/ educational purposes only.) 06/10/2020 8:49 AM CDT 06/10/2020 8:59 AM CDT Narrative [facility] - 06/11/2020 10:43 AM CDT FASTING:YES PATIENT REFUSED SOME TESTING; PATIENT ENCOURAGED TO RETURN. FASTING: YES us Niranjan Potter DO LAB MICROBIOLOGY - GENER AL ORDERABLES Final Result [facility] [address] [place] [address] from Last 3 Months or Most Recently Relevant to Health Maintenance Insurance [employer] MEDICARE ADV [employer] ADVANTAGE CHOICE PPO Advance Directives For more information, please contact: [phone] * Full Code (Latest Code Status on File) Date Activated Date Inactivated Comments 05/05/2022 9:32 AM 05/05/2022 3:25 PM * Full Code Date Activated Date Inactivated Comments 05/05/2022 9:32 AM 05/05/2022 9:32 AM Care Teams Property Management Specialist Relationship Specialty Start Date End Date Jael Fields NP [address] [place], [place] [id number] PCP - General Internal Medicine 10/28/24
[2025-04-21 13:37] LABS: Alanine Aminotransferase 17 U/L (6-50); Albumin Level 4.0 g/dL (3.5-5.1); Alkaline Phosphatase 61 U/L (38-126); Anion Gap 5 mmol/L (4-12); Aspartate Amino Transferase 41 U/L (17-59); Bilirubin,Total 0.6 mg/dL (0.2-1.3); Blood Urea Nitrogen 14 mg/dL (9-20); Calcium 9.2 mg/dL (8.4-10.2); Carbon Dioxide 28 mmol/L (22-30); Chloride 105 mmol/L (98-107); Estimated Glomerular Filt Rate > 60; Glucose 131 mg/dL (65-110); Potassium 4.4 mmol/L (3.4-5.0); Sodium 138 mmol/L (137-145); Total Protein 7.2 g/dL (6.3-8.2)
[2025-04-21 17:23] LABS: Hemoglobin A1C 6.2 % (<5.7)
== END 2025-04-21 08:32 | disposition home or self-care (01) ==
PROVIDERS: PCP Internal Medicine; Visit Provider Nurse Practitioner
DX: Z79.4 Long term (current) use of insulin (principal); E11.9 Type 2 diabetes mellitus without complications
CPT/HCPCS: 36415; 80053; 83036

== ENCOUNTER 2025-07-13 08:55 | Outpatient (CLI) | payer OTHER, SELFPAY ==
--- OUTSIDE RECORDS SUMMARY | 2025-07-13 09:21 | XMS_ITS | Clinical Summary ---
Author Organization [facility] Address [address] [place] [id number] Care Team Providers Care Warehouse Shipping Clerk Name Role Phone Ronal Lopez DO Primary [...] Comments Blood Pressure 120/72 10/06/2016 4:14 PM ACADEMIC COACH Pulse 84 10/06/2016 4:14 PM ACADEMIC COACH Temperature - - Respiratory Rate - - Oxygen Saturation - - Inhaled Oxygen Concentration - - Weight 91.2 kg (201 lb) 10/06/2016 4:14 PM ACADEMIC COACH Height 179.1 cm (5' 10.5) 10/06/2016 4:14 PM CS T Body Mass Index 28.43 10/06/2016 4:14 PM ACADEMIC COACH Plan of Treatment Health Maintenance Due Date Last Done Comments Hepatitis C 1969 Zoster Vaccines (1 of 2) 2001 DTaP, Tdap and Td Vaccines ( 1 - Tdap) 06/04/2006 06/03/2006 Pneumococcal Vaccine: 50+ Ye ars (2 of 2 - PCV20 or PCV21) 10/02/2015 10/02/2014 Colorectal Cancer Screening Colonoscopy (10 Years) 06/03/2024 06/03/2014 COVID-19 Vaccine ( - 2024-2 6 season) 2025 Influenza Adult (#1) 2025 RSV Immunization or 60+ Years (1 - 1-dose 75+ series) 2026 Hepatitis A Vaccines Aged Out No long er eligible based on patient's age to complete this topic Meningococcal B Vaccine Aged Out No l [...] hx of procedure Procedure Note , Generic ConversionMD - 07/07/2018 Documented hx of procedure us Generic Conversion Md OJEDA GI PROCEDURE ORDERABLES Final Result [employer] TO EPIC CONVERSION from Last 3 Months or Most Recently Relevant to Health Maintenance Care Teams Warehouse Shipping Clerk Relationship Specialty Start Date End Date Ronal Lopez DO PCP - General 12/25/14
--- OUTSIDE RECORDS SUMMARY | 2025-07-13 09:21 | XMS_ITS | Encounter Summary ---
Author Organization [facility] Address [address] [place] [address] Care Team Providers Care Sap [place] Consultant Name Role Phone Unavailable Primary Care Provider Unavailabl e Encounter Details Date Type Department Care Team (Late st Contact Info) Description 12/04/2022 Lab Requisition [facility] Lab [address] [place] [id number] Matt Cazares MD [address] [place], [place] [id number] Social History Tobacco Use Types Packs/Day Years [...] AM CDT) Case Report Dermatopathology Report Case: [id number] Authorizing Provider: Matt Cazares MD Collected: 11/30/2022 03:33 AM Ordering Location: [facility] Lab Received: 12/04/2022 06:51 AM Pathologist: Lindsey Xiong MD Specimen: Skin, left upper chest 4:58 PM CDT DERMATOPATHOLOGY LABORATORY Final Diagnosis Specimen A. SKIN, left upper chest: BENIGN VERRUCOUS KERATOSIS (L82.1) 4:58 PM CDT DERMATOPATHOLOGY LABORATORY at 1658 CDT Clinical History SK R/O Atypia Path# [id number] 3 4:58 PM CDT DERMATOPATHOLOGY LABORATORY Gross Description Specimen A: Received is one formalin filled container labeled with the patient's name and designated left upper chest. The specimen consists of a shave biopsy measuring [id number] mm. Jar 0+. 3 4:58 PM CDT [...] purposes. Billing Codes Specimen Charges Stain Charges 01980 1 3 4:58 PM CDT DERMATOPATHOLOGY LABORATORY Embedded Images 3 4:58 PM CDT DERMATOPATHOLOGY LABORATORY Pathology/Cytolo gy TISSUE SPECIMEN FROM SKIN / Unknown 11/30/2022 3:33 AM CDT 12/04/2022 6:51 AM CDT us Matt Cazares MD LAB - PATHOLOGY/CYTOLOGY ORDER PASHA Final Result DERMATOPATHOLOGY LABORATORY [facility] - Department of Dermatology [address], [address] [phone] documented in this encounter Visit Diagnoses Not on filedocumented in this encounter
--- OUTSIDE RECORDS SUMMARY | 2025-07-13 09:21 | XMS_ITS | Clinical Summary ---
Author Organization [facility] Address [address] [place] [address] Care Team Providers Care Service Employee Name Role Phone Unavailable Primary Care Provider Unavailabl e Source Comments [facility],non-owned Affiliates and Associated Physician Practices is amultiple site organization consisting of ambulatory clinics and hospital sitesin [place], [place], [place] and [place]. This disclosure is being madepursuant to the Care Everywhere program and may not contain all informatio navailable regarding this patient. Last updated 18.[facility] Social History Tobacco Use Types Packs/Day Years [...] 2001 ZOSTER VACCINE (1 of 2) 2001 DEPRESSION SCREENING 09/03/2024 COVID-19 VACCINE (1 - 2023-2 5 season) 2025 INFLUENZA VACCINE (#1) 2025 Respiratory Syncytial Virus [...]
--- OUTSIDE RECORDS SUMMARY | 2025-07-13 09:21 | XMS_ITS | Clinical Summary ---
Author Organization [facility] Address [address] [place] [id number] Care Team Providers Care Singing Telegram Performer Name Role Phone Jael Fields NP Primary Care Provider [phone] Allergies No known active allergies Medications aspirin [...] mouth daily 90 tablet 1 4 Active insulin degludec-liraglut austen (Xultophy 100/3.6) 100 [...] (fourteen) days 4 each 2 4 Active metFORMIN XR (GLUCOPHAGE XR) 500 mg 24 hr tablet Take 1 tablet (500 mg total) by mouth daily with breakfast 180 tablet 1 5 Active rosuvastatin (CRESTOR) 40 mg tablet TAKE 1 TABLET(40 MG) BY MOUTH DAILY 100 tablet 5 Active metoprolol tartrate (LOPRESSOR) 50 mg immediate release tabletIndications :Essential (primary) hypertension TAKE 1 TABLET(50 MG) BY MOUTH DAILY 90 tablet 5 Active Active Problems Problem Noted Date Diagnosed Date S/P drug eluting coronary stent placement 2023 Diabetes mellitus 03/15/2023 Encounter for screening colonoscopy 02/10/2022 Overview (02/10/2022): Added automatically from request for surgery [id number] Pulmonary nodule 11/30/2021 Refractive error 08/16/2021 Age-related nuclear cataract, bilateral 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 Assessment & Plan (10/09/2023 2:04 PM MOPHEAD SEWER): A1c worsened from 7.8 to 8.6% Dietary [...] 10/17/2016 Assessment & Plan (07/10/2024 12:40 PM MOPHEAD SEWER): BP stable in office today. Continuing current [...] Description 04/20/2025 11:30 AM CDT Office Visit [facility] at [address] [place] [address] Miguel Matson MD S/P drug [...] Date Comments Hypertension Diabetes mellitus type I GERD (gastroesophageal reflux disease) Occasionally R/T diet [...] on file Legal Sex Male 6:33 PM MOPHEAD SEWER Gender Identity Not on file Sexual Orientation Not on file Last Filed Vital Signs Vital Sign Reading Time Taken Comments Blood Pressure 122/72 04/20/2025 11:38 AM CDT Pulse 83 04/20/2025 11:38 AM CDT Temperature 36.4 C (97.5 F) 07/10/2024 11:29 AM MOPHEAD SEWER Respiratory Rate 16 04/02/2024 11:12 AM CDT [...] 08/16/2021 Well Visit 65+ 12/07/2023 12/06/2022, 05/06/2020 Lung Cancer Screening 2024 2023 Albumin Creatinine Ratio, Urine 10/09/2024 10/09/2023, 09/13/2022, 11/30/2021, Additional history exists Hemoglobin A1C 01/07/2025 07/10/2024, 07, 01/08/2024, Additional history exists Foot Exam 04/09/2025 04/09/2024, 12/06/2022 eGFR 04/09/2025 04/09/2024, 09/04, 06/19/2023, Additional history exists Covid-19 Vaccine (2024- 6 season) 2025 06/19/2022, 08/02/2021, 01/04/2021, Additional history exists Influenza Vaccine (#1) 2025 08/05/2020 Depression Screening 07/10/2025 07/10/2024, 04/09/2024, 01/08/2024, Additional history exists Fall Risk Assessment 07/10/2025 07/10/2024, 01/08/2024, 06/19/2023, Additional history exists Lipid Panel 04/20/2026 04/20/2025, 03/2024, 09/28/2023, Additional history exists Colon Cancer Screening-Colonoscopy [...] 07/14/2021, 12/25/2014 Medical Devices Implanted Type Area Access Manager Device Identifier Shelf Expiration Date Model / Serial / Lot Stent-09/03/1999 Implanted:09/03 (Quantity not on file) Stent Coronary Procedures Procedure Name Priority Date/Time Associated Diagnosis Comments POCT LIPID PANEL Routine 04/20/2025 11:5 1 AM CDT Need for lipid screening CT ABDOMEN PELVIS W WO CONTRAST Schedule Routine, Read Routine (OP Routine) 08/22/2024 10:52 AM MOPHEAD SEWER Gross hematuria POCT HEMOGLOBIN A1C Routine 07/10/2024 11:46 AM MOPHEAD SEWER Type 2 diabetes mellitus with hypoglycemia without coma, with long-term current use of insulin (HCC) EGFR Routine 04/09/2024 12:08 PM CDT Type 2 diabetes mellitus with hyperglycemia, with long-term current use of insulin (HCC) ALBUMIN CREATININE RATIO, URINE Routine 10/09/2023 1:41 PM MOPHEAD SEWER Type 2 diabetes mellitus without complication, with long-term current use of insulin (HCC) PSA SCREEN Routine 09/28/2023 12:15 PM MOPHEAD SEWER Benign prostatic hyperplasia with urinary frequency CT LUNG CANCER SCREENING Schedule Routine, Read Routine (OP Routine) 2023 3:24 PM MOPHEAD SEWER Personal history of nicotine dependence DIABETIC EYE [...] Pelvis W WO Contrast (08/22/2024 10:52 AM MOPHEAD SEWER) Anatomical Region Laterality Modality Body N/A Computed Tomogra phy 08/31/2024 8:37 AM MOPHEAD SEWER Narrative 08/31/2024 8:43 AM MOPHEAD SEWER EXAM DESCRIPTION: CT ABDOMEN PELVIS W WO [...] Sanjiv Beach M.D. CH: LALITHA Report ID: [id number] Reading Location: [place] [address] Procedure Note Sanjiv Beach Jr., MD - [...] Sanjiv Beach M.D. CH: LALITHA Report ID: [id number] Reading Location: [id number] Daja Carroll NP IMG CT PROCEDURES Final Result * POCT hemoglobin A1c (07/10/2024 11:46 AM MOPHEAD SEWER) Hemoglobin A1C, POC 7.7 4.0 - 5.6 % Blood 07/10/2024 11:4 6 AM MOPHEAD SEWER us Daja Carroll HELMINTHOLOGIST POINT OF CARE TEST ORDERABLES Fi nal [...] 04/09/2024 7:35 PM CDT us Daja Carroll HELMINTHOLOGIST LAB BLOOD ORDERABLES Final Resul t [facility] [address] Department [place] [address] * Albumin Creatinine Ratio, Urine (10/09/2023 1:41 PM MOPHEAD SEWER) Albumin Ur <12.0 mg/L [facility] Comment: Interpretive Data No reference range established. Current interpretive data was last revised 2019. Creatinine Ur 41.3 mg/dL [facility] Comment: Interpretive Data No reference range established. Current interpretive data was last revised 2019. Albumin Creatinine Ratio, Ur <29 1 - 29 mg/g [facility] Urine 10/09/2023 1:41 PM MOPHEAD SEWER 10/09/2023 8:30 PM MOPHEAD SEWER us Daja Carroll NP LAB URINE ORDERABLES Final Resul t Performing Organization Address [facility] de Phone Number [facility] [address] Department [place] [address] * PSA screen (09/28/2023 12:15 PM MOPHEAD SEWER) PSA-Total 1.02 <=6.20 ng/mL [facility] Comment: Interpretive Data AGE SEX REFERENCE INTERVAL [...] revised 22. Blood 09/28/2023 12:1 5 PM MOPHEAD SEWER 09/28/2023 8:09 PM MOPHEAD SEWER us Daja Carroll NP LAB BLOOD ORDERABLES Final Resul t Performing Organization Address [facility] de Phone Number [facility] [address] [place] [address] * CT Lung Cancer Screening (2023 3:24 PM MOPHEAD SEWER) Anatomical Region Laterality Modality Chest N/A Computed Tomogra phy 07/31/2023 7:30 AM MOPHEAD SEWER Narrative 07/31/2023 7:38 AM MOPHEAD SEWER EXAM DESCRIPTION: CT LUNG CANCER SCREENING REASON [...] Lokesh Hassan D.O. PS T: Report ID: [id number] Reading Location: [id number] Procedure Note Lokesh Hassan, DO - 07/31/2023 [...] Lokesh Hassan D.O. PS T: Report ID: [id number] Reading Location: [place] [address] Daja Carroll HELMINTHOLOGIST IMG CT PROCEDURES Final Result * Diabetic Eye Exam (11/20/2022) Historical Provider HEALTH MAINTENANCE Final Result * COLONOSCOPY (05/05/2022 9:39 AM CDT) Anatomical Region Laterality Modality Other Narrative Procedure Note Ruel Rodgers MD - 05/05/2022 9:39 AM CDT [facility] Patient Name: Richard Argueta Procedure Date: 05/05/2022 9:39 AM Date of : 1950 Admit Type: Outpatient Age: 71 Gender: Male Attending MD: Ruel Rodgers M.D. Room: [facility] ROOM 2 Note Status: Finalized Patient [...] scope was passed under direct vision.The Colonoscope [id number] was introducedthrough the anus and advanced to [...] 9:39 AM Procedure Code(s): --- Professional --- 53997, Colonoscopy, flexible; with removal of tumor(s), polyp(s), or other lesion(s) by hot biopsy forceps Diagnosis Code(s): --- Professional --- K57.30, Diverticulosis of large intestine without perforation orabscess without bleeding D12.5, Benign neoplasm of sigmoid colon K64.9, Unspecified hemorrhoids Z86.010, Personal history of colonic polyps CPT copyright 2020 [employer]. All rights reserved. The codes documented in this report are preliminary and upon rf manager reviewmay be revised to meet current compliance requirements. Recognized by the [employer] for promoting quality [...] a test for HCV RNA (test code 65110) is suggested. For additional information please refer to http://education.Channel Breeze/faq/XKZ99b4 (This link is being provided for informational/ educational purposes only.) 06/10/2020 8:49 AM CDT 06/10/2020 8:59 AM CDT Narrative [facility] - 06/11/2020 10:43 AM CDT FASTING:YES PATIENT REFUSED SOME TESTING; PATIENT ENCOURAGED TO RETURN. FASTING: YES Niranjan Potter DO LAB MICROBIOLOGY - GENER AL ORDERABLES Final Result [facility] [address] [place] [address] from Last 3 Months or Most Recently Relevant to Health Maintenance Insurance [employer] ADV [employer] CHOICE PPO Advance Directives For more information, please contact: [phone] * Full Code (Latest Code Status on File) Date Activated Date Inactivated Comments 05/05/2022 9:32 AM 05/05/2022 3:25 PM * Full Code Date Activated Date Inactivated Comments 05/05/2022 9:32 AM 05/05/2022 9:32 AM Care Teams Singing Telegram Performer Relationship Specialty Start Date End Date Jael Fields NP [facility] [address] [address] PCP - General Internal Medicine 10/28/24
--- OUTSIDE RECORDS SUMMARY | 2025-07-13 09:21 | XMS_ITS | Encounter Summary ---
Author Organization [facility] Care Team Providers Care President Celebrity Acquistion Name Role Phone Niranjan Potter DO Primary Care Provider + Ruel Root MD Primary Care Provider [phone] Daja Carroll NP Primary Care Provider [phone] Jael Fields MASTER CRAFTSMAN Primary Care Provider [phone] Encounter Details Date Type Department Care Team (Latest Contact Info) Description 11/03/2016 Orders Only [facility] CLINCONV ProviderFelicia MD [address] [place] [address] Social History Tobacco Use Types Packs/Day Years Used Date Smoking Tobacco: Never Assessed Sex and Gender Information Value Date Recorded Sex Assigned at Not on file Legal Sex Male 6:33 PM EYEGLASS LENS CUTTER Gender Identity Not on file Sexual Orientation Not on file documented as of this encounter Plan of Treatment Not on file documented as of this encounter Procedures Procedure Name Priority Date/Time Associated Diagnosis Comments CARDIOLOGY REPORT 11/03/2016 12: 00 AM EYEGLASS LENS CUTTER documented in this encounter Results * CARDIOLOGY REPORT (11/03/2016 12:00 AM EYEGLASS LENS CUTTER) Anatomical Region Laterality Modality Other Narrative 11/03/2016 12:00 AM EYEGLASS LENS CUTTER Ordered by an unspecified provider. Historical Provider [facility] NICHO REYES Final Result documented in this encounter Visit Diagnoses Not on filedocumented in this encounter Care Teams President Celebrity Acquistion Relationship Specialty Start Date End Date Niranjan Potter DO [facility] [address] PCP - General Family Medicine 03/31/20 06/20/21 Ruel Root MD [address] [address] PCP - General Family Medicine 06/21/21 06/18/23 Daja Carroll MASTER CRAFTSMAN [address] [place] [address] PCP - General Family Medicine 06/19/23 10/27/24 Jael Fields NP [address] [facility] [address] [address] PCP - General Internal Medicine 10/28/24 documented as of this encounter
[2025-07-13 13:15] LABS: Anion Gap 4 mmol/L (4-12); Blood Urea Nitrogen 10 mg/dL (9-20); Calcium 8.9 mg/dL (8.4-10.2); Carbon Dioxide 31 mmol/L (22-30); Chloride 103 mmol/L (98-107); Estimated Glomerular Filt Rate > 60; Glucose 115 mg/dL (65-110); Potassium 4.3 mmol/L (3.4-5.0); Sodium 138 mmol/L (137-145)
[2025-07-13 13:44] LABS: Hemoglobin A1C 6.9 % (<5.7)
== END 2025-07-13 08:56 | disposition home or self-care (01) ==
PROVIDERS: PCP Nurse Practitioner; Visit Provider Nurse Practitioner
DX: Z79.4 Long term (current) use of insulin (principal); E11.9 Type 2 diabetes mellitus without complications
CPT/HCPCS: 36415; 80048; 83036